=== PATIENT | female | born 1990 | race Asian ===

== ENCOUNTER 2019-07-19 06:09 | Inpatient (IN) | payer OTHER, SELFPAY ==
[2019-07-19] VITALS (49 sets, daily range): BP systolic 90–167; BP diastolic 46–93; PULSE 79–104; RESP 16; TEMP 36.4–37.6
[2019-07-19 06:56] LABS: Basophils Percent Auto 0.4 % (0.2-1.2); Eosinophils Absolute Auto 0.4 K/mm3 (0-0.3); Eosinophils Percent Auto 4.9 % (0-4.4); Hematocrit 32.4 % (37.0-47.0); Immature Granulocyte Absolute 0.13 K/mm3 (0.00-0.031); Immature Granulocyte Percent A 1.5 % (0-0.5); Immature Platelet Fraction Pct 8.9 % (0.9-11.2); Lymphocytes Percent Auto 15.5 % (18.3-44.2); Mean Corpuscular Hemoglobin 28.1 pg (26-34); Mean Corpuscular Volume 82.9 fl (80-100); Mean Platelet Volume 11.3 fl (7.4-10.4); Monocytes Absolute Auto 0.7 K/mm3 (0.1-0.6); Monocytes Percent Auto 7.7 % (2.6-8.5); Neutrophils Absolute Auto 5.9 K/mm3 (1.3-6.7); Platelet Count Result 146 k/mm3 (150-375); Red Blood Count 3.91 M/mm3 (4.2-5.4); White Blood Count 8.4 K/mm3 (4.5-10.0)
[2019-07-19] MEDS: LACTATED RINGERS 1,000 ML 125 ML IV CONT ×2 (07:09→11:39)
[2019-07-19] MEDS: AMPICILLIN 2 GM/NS 100 ML 2 GM/100 ML BAG IVPB (07:10)
--- NOTE | 2019-07-19 07:41 | PM.IMHP ---
H&P: HPI History of Present Illness Chief complaint: leaking Narrative: Khadra Saha is a 29 year old female 3 para 2001 at 34 weeks and 0 days gestation. She presented with premature rupture of membranes. She reported clear fluid from the vagina. She denies any contractions prior to admission. She is feeling contractions now. They are moderate. She denies any vaginal bleeding. She reports good movement. She denies any headache, blurry vision, epigastric pain. She denies any nausea, vomiting, fever chills or chest pain. Review of Systems Constitutional: Constitutional: Reports no additional constitutional complaints, Denies fatigue, Denies headache(s), Denies lethargy and Denies weakness Eyes: Eyes: Reports no additional eye complaints, Denies blurry vision and Denies photophobia ENT: Reports as per HPI, Denies headache(s) and Denies neck pain Cardiovascular: Cardiovascular: Denies chest pain, Denies diaphoresis, Denies leg edema, Denies palpitations and Denies dyspnea Respiratory: Respiratory: Denies hemoptysis, Denies dyspnea and Denies wheezing Gastrointestinal: Gastrointestinal: Denies abdominal pain, Denies melena, Denies bloating, Denies hematochezia, Denies nausea and Denies vomiting Genitourinary: Genitourinary: Reports no additional female genitourinary complaints Musculoskeletal: Musculoskeletal: Denies joint swelling, Denies neck pain, Denies numbness and Denies stiffness Neurologic: Denies Abnormal speech present, Denies confusion, Denies headache(s), Denies numbness and Denies weakness Psychiatric: Psychiatric: Denies anxiety, Denies confusion, Denies depression, Denies homicidal ideation and Denies suicidal ideation Endocrine: Endocrine: Denies fatigue and Denies palpitations Allergic/Immunologic: Allergic/Immunologic: Denies wheezing Meds Home Medications and Allergies Allergies Allergy/AdvReac Type Severity Reaction Status Date / Time No Known Allergies Allergy Unverified 09/07/14 23:23 Vital Signs Vital Signs - 24 hr 07/19/19 06:48 07/19/19 07:00 07/19/19 07:15 Pulse Rate 86 91 91 Blood Pressure 126/73 122/69 122/68 07/19/19 07:30 Pulse Rate 90 Blood Pressure 116/64 Exam Const: General: healthy appearing, comfortable and no acute distress; No confusion Orientation/consciousness: No confusion Eyes: Direct Ophthalmoscopy: No photophobia Resp: Auscultation: clear to auscultation bilaterally, no rales, no rhonchi and no wheezes Cardio: Rate: regular rate Heart sounds: no click, no murmurs and no rubs GI: Inspection: non-distended GI Palp: No abdominal tenderness Auscultation: normal bowel sounds Neuro: General: No confusion Speech: No Abnormal speech present Extrem: General: normal to inspection, no pedal edema and no calf tenderness H&P: Results Labs Labs: Short CBC 07/19/19 Range/Units 06:46 WBC 8.4 (4.5-10.0) K/mm3 Hgb 11.0 L (12.0-15.0) g/dL Hct 32.4 L (37.0-47.0) % Plt Count 146 L (150-375) k/mm3 Assessment and Plan Assessment and plan (1) premature rupture of membranes (PPROM) with onset of labor after 24 hours of rupture in first trimester, antepartum: Code(s): O42.111 - premature rupture of membranes, onset of labor more than 24 hours following rupture, first trimester Status: Acute Assessment and Plan: This patient is a 29-year-old multiparous female at 34 weeks gestation with premature rupture of membranes. She appears to have some symptoms of early labor. She has reassuring status. She was given a dose of Celestone. She will receive prophylactic antibiotics for GBS. She will be observed at this time for spontaneous labor. Will consider augmentation of labor later. To continue expectant management.
[2019-07-19] MEDS: BETAMETHASONE SOD PHOS/ACETATE 30 MG/5 ML VIAL 12 MG IM (07:51)
[2019-07-19 08:00] LABS: HIV 1/2 Ab P24 Ag Result Negative (Negative)
--- NOTE | 2019-07-19 08:43 | LDADM ---
This patient, Khadra Saha, was admitted to Labor/Delivery/Recovery 107 on 07/19/19 at 06:09. Plans for labor, pain management and were discussed with patient. Patient/family oriented to hospital policies and general routines including ID bracelet, bed and alarms, visiting hours, pain management, procedures, bathroom and other care routines, personal items, smoking policy, room service/diet and guest tray routines, infant security routines, and visiting hours. Patient/Family are encouraged to report perceived risks to care and to ask questions if they do not understand what they are told or what they should do. See OBIX for further documentation.
[2019-07-19 10:54] LABS: Rapid Plasma Reagin Non-Reactive (NonReactive)
[2019-07-19] MEDS: AMPICILLIN 1 GM/NS 50 ML 1 GM/50 ML BAG IVPB ×2 (11:39→15:35)
[2019-07-19] MEDS: OXYTOCIN 30 UNITS/NS 500 ML 30 UNITS/500 ML BAG IV CONT (15:35)
--- NOTE | 2019-07-19 18:35 | WPDNBDN ---
Delivery Note Data Date/Time: 07/19/19 18:35 Called to delivery for 34 week gestation with PROM mom received one dose of steroids today. Baby was crying when I got into the room. Maternal Info : 4
--- NOTE | 2019-07-19 18:49 | PM.OBPRVD ---
OB - Delivery Note Procedure Delivery date: 07/19/19 events: Labor < 37 Weeks Intrapartal events: None Induction method: none Delivery monitor: external FHT and external uterine Route of delivery: Episiotomy description: None Laceration description: Labial (1st degree left labial repaired with 4-0. Only 2 sutures needed. Pt does appear to have a previous vaginal/perineal tear that healed by secondary intention.) Delivery repair: vicryl Specimen: Yes Estimated blood loss (mL): 84 Anesthesia type: None [place] Baby Date of : 07/19/19 Time of : 17:22 Weeks of gestation at delivery: 34 gender: Male presentation: vertex position: Right Occiput Anterior Placenta delivery description: Spontaneous cord vessel description: 3 Vessels Narrative: Cord clamped at 1.5 minutes. Gasses collected and handed off to nursing staff.
[2019-07-19] MEDS: OXYTOCIN 30 UNITS/NS 500 ML 30 UNITS/500 ML BAG 125 UNITS IV CONT (19:03)
--- NOTE | 2019-07-19 21:20 | PC.NURSE ---
Patient transferred to post room #282 via ( wheelchair ). Oriented to unit, room, information board, rooming in, admission packet and security measures. Patient verbalizes understanding.
[2019-07-19] MEDS: ACETAMINOPHEN 325 MG TABLET 650 MG PO (23:57)
[2019-07-20 05:45] LABS: Hematocrit 34.4 % (37.0-47.0); Hemoglobin 11.5 g/dL (12.0-15.0)
--- NOTE | 2019-07-20 06:20 | PC.NURSE ---
Consulted with patient, mother states infant was bottle fed last feeding. Discussed the 34 week infant, with possible sleepiness and low tone for effective suck swallow. Reviewed feeding cues, frequencies, duration of feedings, feeding elimination flow sheet, and signs of adequate intake. Demonstrated stimulation techniques to wake infant for feeding. Assisted with to breast. Reviewed positioning/alignment in cross cradle, holding breast in U hold and guided asymmetrical latch on. made no effort to latch or nurse. Attempt for 5 minutes. Suggested mother supplement and initiate pumping to stimulate milk supply and offer EBM as part of supplement as available.
[2019-07-20] MEDS: ACETAMINOPHEN 325 MG TABLET 650 MG PO ×2 (07:27→21:54)
[2019-07-20] MEDS: MULTIVIT/MIN/PREN/FOL AC/IRON TABLET 1 TAB PO (07:27)
[2019-07-20] MEDS: TETANUS,DIPHTHERIA,AC PERTUSSIS ADULT (0.5 ML) BOOSTRIX IM (07:28)
--- NOTE | 2019-07-20 07:45 | P.PNOB_ITS ---
OB - PN: Subj Subjective Date/time seen: 07/20/19 07:45 Patient comments: no complaints, pain well controlled and other (Lochia similar to menses) [place] baby status: doing well OB - PN: Obj Data Labs CBC & Chem 7: 07/20/19 04:43 Labs: Laboratory Results - last 24 hr 07/19/19 07/19/19 07/19/19 06:46 06:46 06:46 Hgb Hct RPR Non-reactive HIV 1&2 Ab/P24 Ag 4thGn Negative Blood Type O Positive Antibody Screen Negative 07/20/19 04:43 Hgb 11.5 L Hct 34.4 L RPR HIV 1&2 Ab/P24 Ag 4thGn Blood Type Antibody Screen OB - PN A/P Plan day: 1 (s/p vaginal delivery, doing well) Plan: routine care Time Spent With Patient Time: Total time spent is greater than 50% in coordination of care (as documented) at patient's floor/unit and/or counseling patient: Exam Const: General: no acute distress GI: Inspection: other (Fundus firm and nontender at umbilicus) GI Palp: Yes Soft to palpation and No Tenderness to palpation present (GI) Extrem: General: no edema
[2019-07-20 07:55] VITALS: BP 109/67; PULSE 85; RESP 16; TEMP 36.4; O2SAT 98
[2019-07-20 18:45] VITALS: BP 126/55; PULSE 92; RESP 16; TEMP 36.9; O2SAT 99
[2019-07-21] MEDS: ACETAMINOPHEN 325 MG TABLET 650 MG PO ×2 (05:35→16:10)
--- NOTE | 2019-07-21 07:33 | PM.OBPNVD ---
OB - PN: Subj Subjective Date/time seen: 07/21/19 07:33 Patient comments: no complaints baby status: doing well OB - PN: Obj Data Labs CBC & Chem 7: 07/20/19 04:43 OB - PN A/P Plan day: 2 Plan: discharge home Time Spent With Patient Time: Total time spent is greater than 50% in coordination of care (as documented) at patient's floor/unit and/or counseling patient: Review of Systems Review of Systems: All systems reviewed & are unremarkable except as noted in HPI and below Exam Const: General: comfortable Resp: Effort & Inspection: normal respiratory effort Cardio: Rate: regular rate Psych: Appearance: grossly normal Affect: normal affect Attitude: cooperative Judgement: Good judgement present (Psych)
[2019-07-21] MEDS: MULTIVIT/MIN/PREN/FOL AC/IRON TABLET 1 TAB PO (07:50)
[2019-07-21 08:25] VITALS: BP 107/55; PULSE 78; RESP 18; TEMP 37; O2SAT 99
--- NOTE | 2019-07-22 08:00 | PM.OBDSVD ---
DS: Diagnosis Admitting Diagnosis Admitting Diagnosis: premature rupture of membranes, onset of labor more than 24 hours following rupture, first trimester OB - DS: Summary OB Procedures : None OB Procedures Intrapartum: Spontaneous Vag Delivery OB Procedures: : None Peripartum Data Infant Delivery Method: Natural Vaginal Laceration description: Labial complications: none Time Spent with Patient Time attestation: Total time spent providing and/or coordinating discharge services: DS: Data Data Completed and Pending Pending studies at discharge: Pending at discharge 07/19/19 18:30 Surgical [PTH] Routine Discharge Plan Discharge Attending physician on discharge: Laila Pulido Discharging Clinician: Tarah Bray Patient Disposition: Home, Self-Care Activity: pelvic rest Diet: regular Discharge Instructions: Education: Mom and Baby Guide Given to: Mother Follow-Up: Call your delivering provider's office for an appointment to be seen in: 4 Weeks Mom and baby should come to the [facility] for the follow-up appointment. Appointment Date/Time: see 's discharge packet. BREAST CARE: 1. Wear a snug supportive bra. 2. For engorgement discomfort: Breast Feeding: A. Apply warm moist washcloths B. Express milk as needed to relieve engorgement C. Wear loose clothing Bottle Feeding: A. May apply ice packs 3. For sore nipples: A. Identify correct latch-on B. Apply warm moist washcloths before and after nursing C. Air dry nipples after nursing D. May apply Lansinoh cream to nipples EPISIOTOMY/PERINEAL CARE: 1. Until bleeding stops, use your sugar bottle after urinating 2. Change your pad frequently throughout the day 3. You may take sitz baths several times a day (fill your bathtub with warm water and soak for 20 minutes.) Do NOT bathe in the water 4. No tub baths until seen by your physician - You may shower ACTIVITY: 1. Rest as much as possible. 2. Do not exercise or lift anything heavier than your baby (such as laundry or other children.) 3. Avoid stairs or driving as much as possible. 4. Do not put anything into the vagina. No douching, tampons, or sexual activity until seen by physician. NOTIFY PHYSICIAN IF YOU HAVE ANY QUESTIONS OR IF ANY OF THE FOLLOWING SYMPTOMS OCCUR: 1. If your episiotomy becomes red, swollen, or more painful than what you have experienced in the hospital. 2. If your vaginal bleeding becomes foul smelling. 3. If your vaginal bleeding becomes more heavy than a period or if your bleeding changes from pink to bright red. However, you may pass an occasional walnut-sized clot once or twice for the first week . 4. If you experience a sharp, shooting pain in you calves. 5. If you discover a hard, reddened area on your breast or if you experience flu-like symptoms. DIET: 1. Eat regular, well-balanced meals. 2. Drink plenty of fluids daily. If , drink to thirst. Stand Alone Forms: General Discharge Information Follow-up/Referrals: Laila Pulido MD [Physician] - 4 Weeks Date of admission: 07/19/19 06:09 Primary Care Provider: PHYSICIAN,CLERICAL OFFICE WORKER Admitting Provider: Laila Pulido Discharge Date/Time: 07/21/19 16:15 Attending physician on admission: Laila Pulido
== END 2019-07-21 16:15 | disposition home or self-care (01) | DRG 807 ==
LOC: ANHLDR 07-20 09:19 → ANHOB2 07-20 09:19 → ANHOBPP 07-20 09:19
PROVIDERS: Advanced Practice Midwife; Admitting Provider Obstetrics & Gynecology; Visit Provider Obstetrics & Gynecology
DX: O42.913 Preterm premature rupture of membranes, unspecified as to length of time between rupture and onset of labor, third trimester (principal); Z37.0 Single live birth; O70.0 First degree perineal laceration during delivery; O76 Abnormality in fetal heart rate and rhythm complicating labor and delivery; Z3A.34 34 weeks gestation of pregnancy
CPT/HCPCS: 36415; 84112; 85014; 85018; 85025; 85055; 86592; 86703; 86850; 86900; 86901; 88307; 90715; A9270; G0432; J0290; J0702; J2590; J3010; J7120

== ENCOUNTER 2021-12-01 19:00 | Emergency (ER) | payer OTHER, BC, SELFPAY ==
--- NOTE | 2021-12-01 19:01 | ED.EXTPRO ---
HPI - Extremity Problem General Chief complaint: Ear Stated complaint: Dizziness,Rt Arm Numbness Time Seen by Provider: 12/01/21 19:01 Source: patient Mode of arrival: ambulatory Limitations: no limitations History of Present Illness HPI Narrative: Ms. Saha is a 31-year-old female patient presenting to the clinic today with complaints of dizziness since and right arm numbness x2 months. She reports her dizziness seems to be worse when she is at work. She states when she is dizzy she feels as though she is spinning. 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 She denies being overheated or standing for long periods of time at work. She denies any nausea or vomiting. Reports she has right arm numbness/heaviness that starts at the top of her shoulder and radiates down her arm. She reports this is more so at nighttime. She denies any pain or numbness in her arm currently. Related Data Allergies Allergy/AdvReac Type Severity Reaction Status Date / Time No Known Allergies Allergy Verified 12/01/21 19:34 Review of Systems Review of Systems: Pertinent positives per HPI. Patient denies any fever, chills, rash, headache, visual changes, dizziness, cough, runny nose, sore throat, shortness of breath, chest pain, palpitations, nausea, vomiting, diarrhea, constipation, abdominal pain, or any urinary issues. PMFSH Social History Social History Smoking status: Never smoker Second hand tobacco smoke exposure: Yes Substance use: never Gender identity (if verbalized by the patient): Female Spiritual care concerns: No Comments At the time of my signature, I reviewed and agree with the nursing past medical, surgical, social, and family history. There is no relevant family history pertinent to the patient complaint. Exam Narrative: General: Well-developed, well nourished, in no apparent distress Head: Normocephalic, atraumatic Eyes: Pupils equally round and reactive to light bilaterally, EOM intact, sclera and conjunctive clear, no discharge, lids normal, no nystagmus Ears: TMs intact and clear, left ear canal clear, right ear canal cerumen impaction, irrigation performed in the clinic, no drainage, grossly hearing normal. Nose: Nares patent, no discharge, no inflammation, no sinus tenderness. Mouth: Oropharynx without lesions or masses, good dentition, MMM. Tongue midline, even rise and fall of uvula Neck: Supple, trachea midline, no enlargement of anterior or posterior cervical nodes, no thyroid masses or goiter palpable. Cardio: Regular rate and rhythm, s1 and s2 normal, no murmur appreciated. Resp: Clear to auscultation bilaterally anteriorly and posteriorly, no rhonchi, rales, wheezing or rubs Musculoskeletal: No deformity, non-tender to palpation, grossly normal range of motion, muscle strength strong and equal, peripheral pulse strong, no edema, no cyanosis, normal gait and station Neuro: Alert and oriented x4 with normal speech, no focal deficits, cranial nerves I through XII intact, muscle strength 5 out of 5, sensation intact bilaterally, negative Romberg test Musculoskeletal: No deformity, non-tender to palpation, grossly normal range of motion, bilateral muscle strength strong and equal, bilateral strong hand grasp and equal, negative Tinel's, peripheral pulse strong, no edema, no cyanosis, normal gait and station Course Course Emergency Course: Portions of this record may have been created with voice recognition software. Level of Care: Express Care Visit Vital Signs Vital signs: Vital signs reviewed MDM - Extremity (Nontraumatic) MDM Narrative Medical decision making narrative: At the time of visit patient is resting comfortably on the exam table. Patient has right sided cerumen impaction. Ear irrigation performed and was successful. I feel that she is having some nerve inflammation/pinched nurse to the neck when she
[2021-12-01 19:09] VITALS: BP 117/68; PULSE 77; RESP 18; TEMP 36.4; O2SAT 100
== END 2021-12-01 19:42 | disposition home or self-care (01) ==
PROVIDERS: Emergency Provider Nurse Practitioner Family
DX: H61.21 Impacted cerumen, right ear (principal); R20.2 Paresthesia of skin; R42 Dizziness and giddiness
CPT/HCPCS: 69209; 99213; G0463

== ENCOUNTER → 2022-07-10 08:26 | Outpatient (CLI) | payer OTHER, BC, SELFPAY ==
--- NOTE | ~2022-07-10 | XR_ITS ---
Right Shoulder Technique: AP and axillary views were obtained. Clinical History: Pain Findings: No fracture or dislocation is seen. Osseous alignment is anatomic. The glenohumeral and acr omioclavicular joint spaces are preserved. Soft tissues are unremarkable. Impression: Unremarkable right shoulder radiographs. Reviewed, dictated and finalized at [facility]. Impression: Unremarkable right shoulder radiographs.
--- NOTE | ~2022-07-10 | XR_ITS ---
Cervical Spine: AP, lateral, open-mouth views Clinical History: Pain Findings: There is straightening/minimal reversal of the normal cervical lordosis. The vertebral bod ies and posterior elements appear intact. The intervertebral disc spaces are well maintained. Pre-ve rtebral soft tissues are unremarkable. Impression: Straightening/minimal reversal normal cervical lordosis, otherwise unremarkable exam. Reviewed, dictated and finalized at location . Impression: Straightening/minimal reversal normal cervical lordosis, otherwise unremarkable exam.
== END ==
PROVIDERS: PCP Family Medicine; Visit Provider Family Medicine
DX: M25.511 Pain in right shoulder (principal); M54.2 Cervicalgia
CPT/HCPCS: 72050; 73030

== ENCOUNTER 2022-07-22 09:47 | Emergency (ER) | payer OTHER, BC, SELFPAY ==
[2022-07-22 09:56] VITALS: BP 110/65; PULSE 68; RESP 18; TEMP 36.6; O2SAT 100
--- NOTE | 2022-07-22 10:07 | ED.EPISTAXIS ---
HPI - Epistaxis General Chief complaint: Epistaxis Stated complaint: nose bleed Time Seen by Provider: 07/22/22 10:07 Source: patient Mode of arrival: ambulatory Limitations: no limitations History of Present Illness HPI Narrative: 32-year-old female presents with complaint of nosebleeds every morning for the past 8-10 days. Patient reports that she had allergy symptoms and took Claritin for approximately 3 weeks. Has been off of Claritin for about 2 weeks and then nosebleed started. 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 Reports that nose bleeds last approximately 5 minutes. States it it is a slow trickle. Sometimes she wakes up with a nose bleed another time she wakes up congested blows her nose and that her nose starts bleeding. She denies pain. She had a nosebleed this morning that lasted 2 minutes . She is here today with her . She currently does not have a nose bleed. All systems reviewed and negative except as noted above. Related Data Home Medications Medication Instructions Recorded Confirmed tizanidine 2 mg tablet 2 mg PO PRN PRN cervicalgia 07/22/22 07/22/22 Allergies Allergy/AdvReac Type Severity Reaction Status Date / Time No Known Allergies Allergy Verified 07/22/22 09:55 Review of Systems Review of Systems: CONSTITUTIONAL: Denies fever, chills, or sweats. EYES: Denies visual changes, redness, or discharge. ENT: Denies rhinorrhea, congestion, sore throat, or otalgia. Reports nosebleed usually to left nare. CARDIOVASCULAR: Denies chest pain, palpitations, or edema. RESPIRATORY: Denies cough or dyspnea. GASTROINTESTINAL: Denies abdominal pain, nausea, vomiting, or diarrhea. GENITOURINARY: Denies dysuria or hematuria. SKIN: Denies rash or itching. MUSCULOSKELETAL: Denies back pain, joint pain, or myalgia. NEUROLOGIC: Denies headache, numbness, or weakness. PSYCHIATRIC: Denies anxiety or depression. All other systems reviewed are negative, except as documented in HPI. [facility] Social History Social History Smoking status: Never smoker Second hand tobacco smoke exposure: Yes Substance use: never Gender identity (if verbalized by the patient): Female Spiritual care concerns: No Comments At time of signature, agree with nursing past medical, surgical, social and family history. There is no relevant family history pertinent to the presenting complaint. Exam Narrative: GENERAL: This is a well-nourished, well-developed patient, in no apparent distress. HEAD: normocephalic, atraumatic. EYES: PERRL. Sclera clear/white. Vision is grossly intact. EARS: External ears normal, auditory canals clear and without drainage, TMs normal without perforation. Hearing grossly intact. NOSE: External nose normal with no obvious nasal discharge, nares without redness, no rhinorrhea. Dried blood to left nare. No active bleeding. THROAT: Mucous membranes moist, posterior pharynx clear. NECK: Neck supple, non-tender without lymphadenopathy, masses or thyromegaly. CARDIOVASCULAR: Regular rate and rhythm without murmurs, gallops, or rubs. RESPIRATORY: Clear to auscultation. Breath sounds equal bilaterally. No wheezes, rales, or rhonchi. SKIN: warm, Dry, intact with no suspicious lesions or rash, good texture and turgor. NEURO: awake, alert, and oriented to person, place and time. There were no obvious focal neurologic abnormalities. EXTREMITIES: No joint tenderness, effusion, or edema noted. Course Course Level of Care: Express Care Visit Vital Signs Vital signs: Vital Signs Temperature 36.6 C 07/22/22 09:56 Pulse Rate 68 07/22/22 09:56 Respiratory Rate 18 07/22/22 09:56 Blood Pressure 110/65 07/22/22 09:56 Pulse Oximetry 100 07/22/22 09:56 Oxygen Delivery Room Air 07/22/22 09:56 Temperature 36.6 C 07/22/22 09:56 Pulse Rate 68 07/22/22 09
== END 2022-07-22 10:19 | disposition home or self-care (01) ==
PROVIDERS: Emergency Provider Nurse Practitioner Family; PCP Family Medicine
DX: R04.0 Epistaxis (principal)
CPT/HCPCS: 99213; G0463

== ENCOUNTER 2023-12-29 12:46 | Emergency (ER) | payer OTHER, SELFPAY ==
[2023-12-29 13:12] VITALS: BP 122/59; PULSE 93; RESP 16; TEMP 36.6; O2SAT 100
[2023-12-29 13:47] LABS: EDCOVIDSCREEN Positive (Negative)
--- NOTE | 2023-12-29 13:54 | ED.URI ---
HPI - URI/Sore Throat General Chief Complaint: Upper Respiratory Infection Stated Complaint: Cough / runny nose Time Seen by Provider: 12/29/23 13:18 Source: patient, RN notes reviewed and old records reviewed Mode of arrival: ambulatory Limitations: no limitations History of Present Illness HPI Narrative: 33-year-old female to Express Care with complaint of nonproductive cough and runny nose for 2 days. Patient reports that she took a positive COVID test yesterday While at work. however, patient requesting COVID test here. States she means it medically documented for work. Patient is sitting comfortably in exam room in no acute distress. Patient able to tolerate fluids by mouth. Respirations even and nonlabored. Related Data Home Medications Medication Instructions Recorded Confirmed No Home Medications 12/29/23 12/29/23 Allergies Allergy/AdvReac Type Severity Reaction Status Date / Time Penicillins Allergy Rash Verified 12/29/23 13:27 Review of Systems Review of Systems: All systems reviewed & are unremarkable except as noted in HPI and below Constitutional: Constitutional: Reports no additional constitutional complaints Eyes: Eyes: Reports no additional eye complaints ENT: Reports as per HPI and Reports nasal discharge Cardiovascular: Cardiovascular: Reports no additional cardiovascular complaints, Denies chest pain and Denies dyspnea Respiratory: Respiratory: Reports no additional respiratory complaints, Reports cough and Denies dyspnea Musculoskeletal: Musculoskeletal: Reports no additional musculoskeletal complaints Neurologic: Reports system reviewed and no additional complaints, except as documented Psychiatric: Psychiatric: Reports no additional psychiatric complaints PMFSH Social History Social History Smoking status: Never smoker Second hand tobacco smoke exposure: Yes Substance use: never Gender identity (if verbalized by the patient): Female Spiritual care concerns: No Comments At the time of my signature, I reviewed and agree with the nursing past medical, surgical, social, and family history. There is no relevant family history pertinent to the patient complaint. Exam Const: General: cooperative, healthy appearing, comfortable, no acute distress, alert and well nourished Nutritional Appearance: well nourished Orientation/consciousness: patient oriented x3 Limitations: no limitations HENMT: Head: normal to inspection Ears: external ears normal Face/Nose/Sinus: Normal external nose present, Normal nares present, normal facial exam, No erythema and No edema Face and sinus: normal facial exam, no erythema and no edema Mouth: Yes Normal oral and palatal mucosa present Eyes: General: appearance normal, both eyes and all related structures Neck: Neck: normal visual inspection, full ROM and no meningeal signs Lymphatic: no lymphadenopathy noted and no lymphedema noted Chest: Chest palpation & inspection: normal inspection of the chest Resp: Effort & Inspection: normal respiratory effort and able to speak in complete sentences Auscultation: clear to auscultation bilaterally Cardio: Jugular venous distension: no JVD Rate: regular rate Rhythm: regular rhythm Back/Spine/Pelvis: Cervical Spine: cervical ROM normal Skin: General skin exam: normal color, no rashes or lesions noted and turgor normal Neuro: General: patient oriented x3, gait normal, moves all extremities and no meningeal signs Speech: normal speech Gait exam (Neuro): Normal gait present Extrem: General: normal to inspection, full ROM and capillary refill normal Psych: Appearance: grossly normal and well kempt Course Course Emergency Course: Some parts of this dictation were generated by voice recognition software and may contain typographical and/or grammatical inaccuracies. Level of Care: Express Care Visit Vital Signs Vital signs: Vi
== END 2023-12-29 13:58 | disposition home or self-care (01) ==
PROVIDERS: Emergency Provider Nurse Practitioner Family; PCP Family Medicine
DX: U07.1 COVID-19 (principal)
CPT/HCPCS: 87426; 99212; G0463

== ENCOUNTER 2024-04-15 08:32 | Emergency (ER) | payer OTHER, SELFPAY ==
--- NOTE | 2024-04-15 08:35 | ED_ITS ---
HPI - URI/Sore Throat General Chief Complaint: Upper Respiratory Infection Stated Complaint: cough / headache Time Seen by Provider: 04/15/24 08:33 Source: patient Mode of arrival: ambulatory Limitations: no limitations History of Present Illness HPI Narrative: Patient is a 34-year-old female who presents with cough, headache and fatigue for 1 week. Patient states her whole family has had the flu. Also reports fever of 100.5 last night. Denies any nausea, vomiting, diarrhea cause sore throat. Has been taking cough medicine and Tylenol. Related Data Allergies Allergy/AdvReac Type Severity Reaction Status Date / Time Penicillins Allergy Rash Verified 04/15/24 08:42 Review of Systems Review of Systems: All systems reviewed & are unremarkable except as noted in HPI and below Constitutional: Constitutional: Denies body ache(s), Denies chills, Reports fatigue, Reports fever(s), Reports headache(s), Denies malaise and Denies weakness Eyes: Eyes: Denies blurry vision, Denies itchy eyes and Denies loss of vision ENT: Denies otalgia, Reports headache(s), Denies nasal congestion, Denies sinus pain and Denies sore throat Cardiovascular: Cardiovascular: Denies chest pain, Denies irregular heart rhythm and Denies dyspnea Respiratory: Respiratory: Reports cough and Denies dyspnea Gastrointestinal: Gastrointestinal: Denies abdominal pain, Denies diarrhea, Denies nausea and Denies vomiting Musculoskeletal: Musculoskeletal: Denies back pain, Denies myalgias and Denies arthralgias Integumentary/Breasts: Skin/Breast: Denies pruritus and Denies rash Neurologic: Reports headache(s), Denies loss of vision and Denies weakness Psychiatric: Psychiatric: Reports no additional psychiatric complaints Endocrine: Endocrine: Denies fatigue Allergic/Immunologic: Allergic/Immunologic: Denies itchy eyes PMFSH Social History Social History Smoking status: Never smoker Second hand tobacco smoke exposure: Yes Substance use: never Gender identity (if verbalized by the patient): Female Spiritual care concerns: No Comments At time of signature, agree with nursing past medical, surgical, social and family history. There is no relevant family history pertinent to the presenting complaint. Exam Const: General: cooperative, healthy appearing, comfortable, no acute distress and well nourished Nutritional Appearance: well nourished Orientation/consciousness: patient oriented x3 Limitations: no limitations HENMT: Head: normal to inspection, normocephalic and atraumatic Ears: hearing grossly normal bilaterally, external ears normal, TM's normal bilaterally, no periauricular adenopathy and Abnormal EAC present excessive cerumen on the right Face/Nose/Sinus: Normal external nose present, Abnormal mucous membranes and turbinates present erythematous bilateral and diffuse, normal facial exam, sinuses nontender and face symmetric Face and sinus: normal facial exam, sinuses nontender and face symmetric Mouth: Yes Normal oral and palatal mucosa present, Yes lip normal, Yes tongue normal, Yes Normal salivary glands and ducts present, Yes oropharynx normal and Yes moist mucous membranes Teeth and gingiva: dentition normal Throat: posterior oropharynx normal, tonsils normal and uvula midline Eyes: General: appearance normal, both eyes and all related structures Alignment and Position: alignment normal and position normal Periorbital: periorbital findings normal Eyelids: eyelids normal Pupils: Equal, round and reactive pupils present Neck: Neck: normal visual inspection, full ROM, no lymphadenopathy and supple Chest: Chest palpation & inspection: normal inspection of the chest and normal palpation of entire chest wall Resp: Effort & Inspection: normal respiratory effort and able to speak in complete sentences Auscultation: no crackles, no rales, rhonchi upper bilaterally (clears with cough) and no wheezes Cardio: Rate: tachycardic Rhythm: regular rhythm Heart sounds: S1 normal heart sound present and S2 normal heart sound present GI: Inspection: normal to inspection Skin: General skin exam: normal color and no rashes or lesions noted Neuro: General: patient oriented x3 and moves all extremities Cranial nerves: Yes Equal, round and reactive pupils present Speech: normal speech Gait exam (Neuro): Normal gait present Extrem: General: normal to inspection, full ROM and no edema Psych: Appearance: grossly normal and well kempt Mental Status: mental status grossly normal Speech and movement: Normal speech and movement present Affect: normal affect Attitude: cooperative Thought process: Normal thought process present Course Course Emergency Course: Discharge instructions reviewed with patient, as well as provided in writing per nursing staff. The instructions also include specific and strict return/GO TO THE ER as well as f/u information. All questions have been answered, and the patient deny any further questions with discharge and discharge plan. Portions of this record may have been created with voice recognition software Level of Care: Express Care Visit Vital Signs Vital signs: Vital Signs Temperature 36.6 C 04/15/24 08:41 Pulse Rate 107 H 04/15/24 08:41 Respiratory Rate 18 04/15/24 08:41 Blood Pressure 118/87 04/15/24 08:41 Pulse Oximetry 100 04/15/24 08:41 Oxygen Delivery Room Air 04/15/24 08:41 Temperature 36.6 C 04/15/24 08:41 Pulse Rate 107 H 04/15/24 08:41 Respiratory Rate 18 04/15/24 08:41 Blood Pressure 118/87 04/15/24 08:41 Pulse Oximetry 100 04/15/24 08:41 Oxygen Delivery Room Air 04/15/24 08:41 Reviewed MDM - URI/Sore Throat MDM Narrative Medical decision making narrative: Pt well hydrated appearing, in no respiratory distress, hemodynamically stable. Recommend supportive care. The patient is stable at time of discharge the clinical impression was discussed and the patient was given the opportunity to ask questions, which were addressed as completely as possible given the information available at present. Anticipatory guidance and return to care precautions were discussed and the importance of primary care follow-up was stressed and encouraged. The patient voiced understanding of the plan, indications to return, and the need for follow-up. Differential diagnosis considered: Jackson virus, strep pharyngitis, allergic rhinitis, upper respiratory tract infection, sinusitis, rhinosinusitis, nasopharyngitis. viral pharyngitis, otitis media, otitis externa, otitis effusion, foreign body, cerumen impaction, viral syndrome, and influenza.? Exam findings show no acute concerns or changes; patient is non-toxic appearing and is in no distress.? Patient is appropriate for outpatient treatment and follow- up.? Medical Records Attestation: I reviewed the patient's medical records. Lab Data Attestation: I reviewed the patient's lab results. Labs: Lab Results 04/15/24 04/15/24 Range/Units 09:09 09:10 POC Influenza A Ag Negative (Negative) POC Influenza B Ag Negative (Negative) POC SARS CoV-2 Ag Negative (Negative) Discharge Plan Discharge Clinical Impression: Viral infection Patient Disposition: Home, Self-Care Condition: Stable Instructions: Viral Syndrome (ED) Additional Instructions: Your flu and COVID were both negative Your symptoms are due to a viral illness, which is not treated with antibiotics. Viral symptoms can be present for up to a few weeks. -For fever/pain, you may take: Tylenol 650-1000mg by mouth every 4-6 hours. Do not exceed 4000mg in 24 hours. Advil (Ibuprofen) 600 mg by mouth every 6 hours. Do not exceed 2400mg in 24 hours. 8 AM: Tylenol 11 AM: Ibuprofen 2 PM: Tylenol 5 PM: Ibuprofen 8 PM: Tylenol 11 PM: Ibuprofen 2 AM: Tylenol 5 AM: Ibuprofen -Antihistamine medication such as Benadryl/Zyrtec at night and Claritin/Carlene during the day can help improve symptoms. -Use Flonase twice a day for 5 days then daily to help reduce the inflammation and dry up your sinuses. -You can also use Sudafed behind the pharmacy counter(12 or 24 hour). Be sure to drink plenty of water with these medications at least 8 ounces with every dose and it is important to drink 8 to 10 glasses of water per day. Water is a natural decongestant -Eat and drink things that are easy to swallow, like tea or soup, or popsicles. -Oral rinses such as: Salt water gargles and/or may use topical anesthetic (eg. Chloraseptic spray) or lozenges to relieve dryness or throat pain). -Frequent hand washing or hand contact center associate is one of the best ways to prevent spread of infection. -Using a vaporizer or humidifier at night will also help thin secretions and help with coughing up phlegm. -Follow up with primary care provider in 3-5 days if condition is not improving - For new or worsening symptoms go directly to the nearest ER Patient Language: Wolof Prescriptions: New benzonatate 100 mg capsule 100 mg PO BID PRN (Reason: cough) Qty: 14 0RF Follow-up/Referrals: J Carlos,MD Cheng [Primary Care Provider] - 3 Days Stand Alone Forms: Work/School Release IP Time of Disposition: 09:02
--- OUTSIDE RECORDS SUMMARY | 2024-04-15 08:37 | XMS_ITS | Data Portability ---
Author Organization [place] [facility], Main Office Address [address] [place] [address] Care Team Providers Care Fixed Income Director Name Role Phone WHITMAN, CHENG Primary Care Provider Assessment Encounter Date Assessment Date Assessment LastModified by Organization Details LastModified Time 11/13/2022 11/13/2022 32 yo F with - TOOTHACHE, Rt upper molar - HLD, new - CHRONIC NECK PAIN - RT SHOULDER PAIN, chronic - PARESTHESIA OF UEs Annual labs: 08/07/22. X-ray C-spine & Rt shoulder: 07/10/22. D/w pt and her in detail about her findings, recent labs & imagines and further plan of care. Staff to get result. Will call pt with it. Pt declined for statin at this time. Meds as directed. Diet and exercise explained in detail. Advised to avoid any strenuous activities/lif ting-pushing until cleared. Educated pt about alarming symptoms to monitor at home and call us back or get checked in ED. HM: WWE - 08/28/22, normal. Cont f/u with OUTSOLE COMPRESSOR as per schedule. Flu, Tdap, Gardasil - At pharmacy/HD. F/u in 3 months. Lipids in 03/01. Annual labs in 08/31. [email or web address] Not available 11/13/2022 09:48:43 02/12/2023 02/12/2023 32 yo F with - HLD, new - CHRONIC NECK PAIN, improved - RT SHOULDER PAIN, chronic, improved - PARESTHESIA OF UEs, resolved Annual labs: 08/07/22. X-ray C-spine & Rt shoulder: 07/10/22. D/w pt and her in detail about her findings, recent labs & imagines and further plan of care. Pt declined for statin at this time. Meds as directed. Diet and exercise explained in detail. Advised to avoid any strenuous activities/lif ting-pushing until cleared. Educated pt about alarming symptoms to monitor at home and call us back or get checked in ED. HM: WWE - 08/28/22, normal. Cont f/u with OUTSOLE COMPRESSOR as per schedule. Flu - Pt declined. Tdap, Gardasil - At pharmacy/HD. F/u in 1-2 months. Lipids in 03/01. Annual labs in 08/31. Not available 02/12/2023 09:52:08 04/15/2023 04/15/2023 33 yo F with - HLD (diet controlled), improved - CHRONIC NECK PAIN, improved - RT SHOULDER PAIN, resolved - PARESTHESIA OF UEs, resolved Annual labs: 08/07/22. X-ray C-spine & Rt shoulder: 07/10/22. D/w pt and her in detail about her findings, recent labs & imagines and further plan of care. Meds as directed. Diet and exercise explained in detail. Advised to avoid any strenuous activities/lif ting-pushing until cleared. Educated pt about alarming symptoms to monitor at home and call us back or get checked in ED. HM: WWE - 08/28/22, normal. Cont f/u with OUTSOLE COMPRESSOR as per schedule. Flu - Pt declined. Tdap, Gardasil - At pharmacy/HD. F/u in 4 months. Annual labs in 08/31. [email or web address] Not available 04/15/2023 10:08:37 Plan of Treatment Reminders Order Date Submit Date Provider Last Modified By Organization Details Last Modified Time Details Appointments None recorded. Lab lipid panel, serum [email or web address] [facility] (Lab), [address] [place], [address], 4 16:51:15 lipid panel, serum [email or web address] [facility] (Lab), [address] [place], [address], 4 09:17:04 Referral None recorded. Procedures None recorded. Surgeries None recorded. Imaging None recorded. Medication Orders penicillin V potassium 500 mg tablet [address] [id number], [address] [place], [place], [id number], 10:01:48 meclizine 25 mg tablet [address] [id number], [address] [place], [place], [id number], 10:01:45 Patient TargetsNo targets recorded. Patient Instructions Encounter Date Encounter Id Patient Instructions Last Modified By Organization Details Last Modified Time 11/13/2022 [id number] high cholesterol : care instructions [email or web address] Not available 11/13/2022 09:39:06 02/12/2023 [id number] high cholesterol : care instructions Not available 02/12/2023 09:47:25 04/15/2023 [id number] high cholesterol : care instructions [email or web address] Not available 04/15/2023 10:06:08 Reason for Referral None Reported. Results Created Date Observation Date Name Description Value Unit Range Abnormal Flag Note LastModifiedBy Organization Detail LastModifiedTime 04/08/19 24 04/08/2023 LIPID PANEL cholesterol 186 mg/dL 140-19 9 NIH DANY NSUS RECOM MENDA TION FOR RICHARD STERO L: ADULT CHILD LOW RISK: <200 <170 BORDE RLINE : <200- 239 ----- HIGH RISK: >240 >[address] [facility] (Lab) [address] [place], [address], 04/08/2023 16:31:30 04/08/19 24 04/08/2023 LIPID PANEL triglyceride s 113 mg/dL 0-150 NIH DANY NSUS REPOR T RECOM MENDA TION FOR TRIGL YCERI YAZMIN: ADULT CHILD LOW RISK: <150 ----- BODER LINE: 150-1 99 ----- HIGH RISK: >200 ----- Not Available [facility] (Lab) [address] [place], [address], 04/08/2023 16:31:30 04/08/19 24 04/08/2023 LIPID PANEL HDL cholesterol 55 mg/dL 40- Not Available [facility] (Lab) [address] [place], [address], 04/08/2023 16:31:30 04/08/19 24 04/08/2023 LIPID PANEL LDL cholesterol, calculated 108 mg/dL 0-130 NIH DANY NSUS REPOR T RECOM MENDA TIONS FOR LDL: ADULT CHILD LOW RISK <130 <110 (OPTI MAL LDL) <100 ----- NAHIDDE RLINE : 130-1 59 ----- HIGH RISK: >160 >130 A TRIGL YCERI DE RESUL T >400 INVAL IDATE S THE CALCU LATIO N FOR LDL FRACT IONAT ION - THE LDL RESUL T WILL NOT BE REPOR DANICA. Not Available [facility] (Lab) [address] [place], [address], 04/08/2023 16:31:30 Result Notes None recorded. Problems Name Problem SNOMED Code Status Onset Date Resolution Date Notes Provider Name and Address Organization Details Recorded Time Pain of right shoulder joint 7128516377699 9100 Active 2022 Cheng Whitman MD [address] [facility], [address], [address], [employer] 3 10:08:26 Chronic neck pain 9709924474947 Active 2022 Cheng Whitman MD [address] [facility], [address] [address], [place], [address], [employer] 3 10:08:32 Paresthesia of upper limb 18006452 Active 2022 Cheng Whitman MD [address] [facility], [address] [address], [place], [address], [employer] 3 10:40:41 Impacted cerumen in right ear 8736200743065 103 Active 2022 Cheng Whitman MD [address], [place], [address], [employer] 3 10:09:32 Hyperlipide maksim 30854386 Active 2022 Cheng Whitman MD [address] [facility], [address], [place], [address], [employer] 3 12:01:50 Toothache 62667604 Active 2022 Cheng Whitman MD [address], [place], [address], [employer] 3 09:40:03 Vertigo 066226043 Active 2022 Cheng Whitman MD [address] [facility], [address], [place], [address], [employer] 09:46:43 Problem Notes None recorded. Procedures Surgical History Date Name Laterality Status Provider Name and Address Organization Details Recorded Time 08/29/19 23 Date of Last Pap Smear completed Shabana Burnham RN [facility] 04/15/2023 10:01:30 08/22/19 23 Ear Irrigation completed Cheng Whitman MD [address], [address] [place] [address], [place], [address], [employer] [facility] 08/21/2022 11:59:49 03/10/19 14 appendectomy completed Bell Harrison RN [facility] 07/02/2022 09:59:13 Imaging Results None recorded. Procedure Notes None recorded. Medical Equipment None Reported. Allergies Allergen ID Allergen Name Allergen Category Reaction Reaction Severity Criticality Documentation Date Start Date Code Code System Note Provider Name and Address Organization Details Recorded Time 66822 Product containin g penicilli n and antibioti c (product) medicatio n rash Not available Not available 04/15/2023 32830 05 SNOMED Shabana Burnham RN [facility], [facility] 4 09:55:13 Medications Name Sig Start Date Stop Date Status Note LastModified by Organization Details LastModified Time tizanidine 2 mg tablet Take 1 tablet every 12 hours by oral route as needed for 30 days. 08/28 completed Not Available Not Available Not Available clindamycin HCl 300 mg capsule TAKE 1 CAPSULE BY MOUTH EVERY 6 HOURS UNTIL ALL TAKEN 04/15 completed Not Available Not Available Not Available prednisone 20 mg tablet TAKE 2 TABLETS BY MOUTH DAILY FOR 5 DAYS 07/02 completed Not Available Not Available Not Available penicillin V potassium 500 mg tablet TAKE 1 TABLET BY MOUTH EVERY 8 HOURS FOR 7 DAYS DIRECTED 04/15 completed Not Available Not Available Not Available meclizine 25 mg tablet TAKE 1 TABLET BY MOUTH EVERY 8 HOURS FOR 5 DAYS NEEDED 04/15 completed Not Available Not Available Not Available diclofenac sodium 75 mg tablet,dirk yed release Take 1 tablet every 12 hours by oral route as needed for 30 days. 04/15 completed Not Available Not Available Not Available Saline Nasal 0.65 % spray aerosol USE 1 SPRAY IN EACH NOSTRIL FOUR TIMES DAILY 08/28 completed Not Available Not Available Not Available Vitals Date Recorded Body height Body mass index (BMI) Body weight Body temperature Heart rate Respiratory rate Oxygen saturation Oxygen saturation in Arterial blood by Pulse oximetry Systolic blood pressure Diastolic blood pressure Provider Name and Address Organization Details Last Updated DateTime 3 149.86 cm 24.8 kg/m2 00009.7 8 g 97.1 [degF] 76 /min 16 /min 98 % 98 % 100 mm[Hg] 60 mm[Hg] Gus Sanchez [facility] [employer] [facility] 3 09:33:40 Date Recorded Body height Body mass index (BMI) Body weight Body temperature Heart rate Respiratory rate Oxygen saturation Oxygen saturation in Arterial blood by Pulse oximetry Systolic blood pressure Diastolic blood pressure Provider Name and Address Organization Details Last Updated DateTime 3 149.86 cm 25.4 kg/m2 99270.6 4 g 98.1 [degF] 68 /min 16 /min 98 % 98 % 102 mm[Hg] 58 mm[Hg] Gus [facility] [employer] [facility] 3 09:40:47 Date Recorded Body height Body mass index (BMI) Body weight Body temperature Heart rate Oxygen saturation Oxygen saturation in Arterial blood by Pulse oximetry Pain severity - 0-10 verbal numeric rating [Score] - Reported Systolic blood pressure Diastolic blood pressure Provider Name and Address Organization Details Last Updated DateTime 149.86 cm 25.4 kg/m2 94855.2 g 96.3 [degF] 73 /min 98 % 98 % 0 120 mm[Hg] 80 mm[Hg] Shabana Burnham RN [facility] 09:57:31 Date Recorded Respiratory rate Provider Name a nd Address Organization Details Last Updated DateTime 04/15/2023 20 /min Madeline Torres [address] [facility], [address], [address], [employer] [facility] 04/15/2023 10:02:35 Social History Question Answer Notes LastModified by Organization Details LastModified Time Tobacco Smoking Status Never Smoker Blel Harrison RN [facility], [place] [employer] [facility] 07/02/2022 09:57:17 Do You Have An Advance Directive? No [email or web address] Information not available 07/02/2022 What Is Your Level Of Alcohol Consumption? None Information not available 07/02/2022 Is Blood Transfusion Acceptable In An Emergency? Yes Information not available 08/28/2022 What Is Your Level Of Caffeine Consumption? None [email or web address] Information not available 07/02/2022 What Is Your Code Status? Full Code Information not available 08/28/2022 In The 14 Days Before Symptom Onset, Have You Had Close Contact With A Laboratory-confi rmed COVID-19 While That Case Was Ill? No [email or web address] Information not available 07/02/2022 In The 14 Days Before Symptom Onset, Have You Had Close Contact With A Person Who Is Under Investigation For COVID-19 While That Person Was Ill? No [email or web address] Information not available 07/02/2022 Are You Currently Employed? Yes [email or web address] Information not available 07/02/2022 What Type Of Diet Are You Following? REGULAR [email or web address] Information not available 07/02/2022 What Is The Highest Grade Or Level Of School You Have Completed Or The Highest Degree You Have Received? 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 No [email or web address] Information not available 07/02/2022 Do You Use Insect Repellent Routinely? Yes Information not available 07/02/2022 [facility] [email or web address] Information not available 07/02/2022 Do You Have A Medical Power Of Cotton Candy Maker? No Information not available 08/28/2022 How Many Children Do You Have? 3 2 Sons 1 Daughter Information not available 07/02/2022 Do You Have Any Pets? No [email or web address] Information not available 07/02/2022 What Is Your Relationship Status? [email or web address] Information not available 07/02/2022 Do You Use Your Seat Belt Or Car Seat Routinely? Yes [email or web address] Information not available 07/02/2022 Do You Have Smoke And Carbon Monoxide Detectors In Your Home? Yes [email or web address] Information not available 07/02/2022 Are You Passively Exposed To Smoke? Yes [email or web address] Information not available 07/02/2022 Are There Any Smokers In Your House? Yes [email or web address] Information not available 07/02/2022 Do You Participate In Social Media? Yes Information not available 08/28/2022 What Types Of Sporting Activities Do You Participate In? Walk Information not available 04/15/2023 Do You Feel Stressed (tense, Restless, Nervous, Or Anxious, Or Unable To Sleep At Night)? [id number] [email or web address] Information not available 07/02/2022 Do You Use Any Illicit Or Recreational Drugs? No [email or web address] Information not available 07/02/2022 Do You Use Sunscreen Routinely? Yes [email or web address] Information not available 07/02/2022 Have You Recently Traveled Abroad? No Information not available 07/02/2022 Sex: Unknown Functional Status Question Answer Note LastModified by Organizat ion Details LastModified Time What is your exercise level? Occasional Information not available 04/15/2023 Mental Status None recorded. Family History Relationship Description Onset Age of this Age Resolved Age Notes LastModified by Organization Details LastModified Time Father No current problems or disability [email or web address] Not available 07/02 09:56:41 Mother No current problems or disability [email or web address] Not available 07/02 09:56:41 Medical History Condition Response BLINDNESS N RHEUMATIC FEVER N KIDNEY STONES N BLADDER PROBLEMS N MRSA N OTHER # 1 N POLIO N LUNG DISEASE/DISORDER N HISTORY OF DRUG ABUSE N RADIATION / CHEMOTHERAPY N COPD N Other # 2 N BLOOD DISEASES N SURGERY N EAR OR HEARING PROBLEMS N MUMPS N SHINGLES N BOWEL PROBLEMS N FEMALE PROBLEMS / INFECTIONS N DEPRESSION (INCLUDING POST ) N FAILED BACK SYNDROME N STROKE/TIA N THYROID DISEASE N ULCERS N BENIGN PROSTATIC HYPERPLASIA N MEASLES N CERVICALGIA N HYPOTENSION N TB SKIN TEST N MYOCARDIAL INFARCTION N PARAPELGIA N OBESITY N GERD/NAUSEA N ANEURYSM N URINARY/BLADDER/KIDNEY PROBLEMS N CORONARY ARTERY DISEASE (CAD) N MENIERE'S DISEASE N Do you have Advance directive? N ADDICTION CONCERNS N ENDOMETRIOSIS N USE OF BLOOD THINNERS N SKIN PROBLEMS N EMPHYSEMA N GASTROINTESTINAL DISORDER N PERIPHERAL ARTERY DISEASE N MUSCLE,JOINT OR BONE PROBLEMS N GASTROINTESTINAL BLEEDING N BLOOD CLOTS N ASTHMA N Abdominal Pain N CATARACTS N ARTERIAL INSUFFICIENCY N ERECTILE DYSFUNCTION N GI PROBLEMS N CHF N Low Testosterone N NEUROPATHY N INFERTILITY N AIDS/HIV N FRACTURES N CHEMOTHERAPY / RADIATION N VISION/EYE PROBLEMS N LIVER DISEASE N HYPERTENSION N TOURETTE'S N ANXIETY DISORDER N BLOOD TRANSFUSION N ANEMIA/BLOOD DISORDER N CHRONIC EAR INFECTIONS N BRONCHITIS N TUBERCULOSIS N GLAUCOMA N FOOT PROBLEM N DIVERTICULITIS N CHICKENPOX N SLEEP APNEA N BACK INJECTIONS N ALLERGIES/HAYFEVER N INFECTIOUS DISEASE N HEART ARRHYTHMIA N PROSTATE N ESRD N INSOMNIA N HIGH CHOLESTEROL / HYPERLIPIDEMIA N HYPERTHYROIDISM N EYE PROBLEMS N PVD N EATING DISORDER N EDEMA N CHRONIC PAIN SYNDROME N CAROTID BLOCKAGE N CONSTIPATION N BACK / NECK PROBLEMS N HAVE YOU BEEN HOSPITALIZED OR SEEN IN THE MEDICAL CENTER IN THE PAST YEAR ? N ATHEROSCLEROSIS N BREAST PROBLEMS N DIALYSIS N POLYCYSTIC OVARIES N ECZEMA N FIBROMYALGIA N OSTEOPOROSIS N ARTHRITIS N NO SIGNIFICANT PAST MEDICAL HISTORY N APPENDICITIS N DIABETES, TYPE N BAD TEETH N VON WILLIBRAND'S DISEASE N HEARTBURN / REFLUX N ADD/ADHD N AUTISM SPECTRUM DISORDER (ASD) N POST LAMINECTOMY SYNDROME N HEPATITIS / LIVER DISEASE N PULMONARY DISEASE N GOUT N SLEEP DISORDER N ALZHEIMER'S DISEASE N PAIN N HERPES N DEMENTIA N HEADACHES/MIGRAINES N SEIZURES/EPILEPSY N VASCULAR DISEASE N PACEMAKER N DIZZINESS N HEART DISEASE/HEART PROBLEMS N KIDNEY DISEASE N DEVELOPMENTAL OR BEHAVIORAL DISORDERS N MULTIPLE SCLEROSIS N SCARLET FEVER N MENTAL DISORDER/ILLNESS N NEUROPSYCHOLOGICAL N CARDIAC ARRHYTHMIA N CANCER: SPECIFY N PNEUMONIA N ATRIAL FIBRILLATION N Gall Stones N PULMONARY EMBOLISM N AUTOIMMUNE DISEASE N Gynecological History Statement/Question Response Abnormal Pap N Flow Light Date of LMP 04/15/2023 STIs/STDs N Dislike of Light during Menstrual Headac he Y Do your menstrual headaches get severe Y Date of Last Pap 08/28/2022 Duration of Flow (days) 4 Most Recent Mammogram Age at Menarche 10 Breast Problems no Date of Last Colonoscopy Frequency of Cycle (Q days) 28 Most Recent Bone Density Date of Last Pap Smear 08/28/2022 Discharge no Obstetrics History GPAL:G 3 P 2 1 0 3 Type Value Full Term 2 Premature 1 Living 3 Total 3 Past Encounters Encounter ID Performer Location Encounter Start Date Encounter Closed Date Diagnosis/Indication Diagnosis SNOMED-CT Code Diagnosis ICD10 Code Diagnosis Note [id number] Cheng Whitman MD [address] [address] 07/02/2022 09:47:34 07/02/2022 10:49:45 Pain of right shoulder joint 7971157189 9518097 M25.511 Chronic neck pain 345322 3749 107 M54.2 Paresthesi a of upper limb 03353967 R20.2 Rt UE [id number] Cheng Whitman MD [address] [address] 07/16/2022 09:52:17 07/16/2022 10:27:20 Pain of right shoulder joint 3312720797 0658285 M25.511 Chronic neck pain 351707 6160 107 M54.2 Paresthesi a of upper limb 90738780 R20.2 Rt UE [id number] Cheng Whitman MD [address] [address] 08/07/2022 09:51:35 08/07/2022 10:12:29 Adult health examination 109665444 Z00.00 Pain of ri ght shoulder joint 4663298959 0606615 M25.511 Chronic neck pain 461686 4471 107 M54.2 Paresthesi a of upper limb 07542070 R20.2 Rt UE Impacted c erumen in right ear 7537997508 419153 H61.21 [id number] Cheng Whitman MD [address] [address] 08/21/2022 11:52:12 08/21/2022 12:08:13 Pain of right shoulder joint 9877718694 6309677 M25.511 Chronic neck pain 515169 5595 107 M54.2 Paresthesi a of upper limb 44813144 R20.2 Rt UE Impacted c erumen in right ear 5156893562 698732 H61.21 Hyperlipidemia 96583655 E78.5 [id number] Shabana Nichols NP [address] [address] 08/28/2022 10:02:59 08/28/2022 10:46:11 Gynecologic examination 07489809 Z01.419 Encouraged well balanced meals, active lifestyle, and routine vision and dental appts. [id number] Cheng Whitman MD [address] [address] 11/12/2022 09:33:14 11/12/2022 13:00:15 [id number] Cheng Whitman MD [address] [address] 11/13/2022 09:28:49 11/13/2022 09:57:25 Hyperlipidemia 21939848 E78.5 Pain of ri ght shoulder joint 5416673084 2645885 M25.511 improved Chronic neck pain 518218 2081 107 M54.2 improved Paresthesi a of upper limb 06139180 R20.2 Rt UE - resolved Toothache 72384385 K08.8 9 [id number] Cheng Whitman MD [address] [address] 02/12/2023 09:21:43 02/12/2023 09:58:41 Hyperlipidemia 42146166 E78.5 Pain of ri ght shoulder joint 0741139377 5529510 M25.511 resolved Chronic neck pain 193052 2011 107 M54.2 improved Paresthesi a of upper limb 49640525 R20.2 Rt UE - resolved Vertigo 179053254 R42 [id number] Cheng Whitman MD [facility] [address] 04/08/2023 09:44:32 04/08/2023 11:32:20 [id number] Cheng Whitman MD [facility] [address] [place] [address] 04/15/2023 09:46:54 04/15/2023 10:25:59 Hyperlipidemia 60795498 E78.5 Improved Pain of ri ght shoulder joint 6270071949 4251385 M25.511 resolved Chronic neck pain 758442 3721 107 M54.2 improved Paresthesi a of upper limb 88087021 R20.2 Rt UE - resolved Health Concerns Section Related Observation LastModified by Organization Detai ls LastModified Time None Recorded Concern Status LastModified by Organization Details LastModified Time None Recorded Advance Directives Directive N: Payers Encounter Date Sequence Insurance Name Policy Number Policy Franco Covered Member ID Franco Member ID Guarantor Name 11/12/2022 2 [facility] (MEDICAID REPLACEMENT - HMO) [id number] Khadra Thomas Chandan [id number] Khadra Thomas Chandan Saha 11/12/2022 1 () Khadra Sahni Maria A [id number] Khadra Thomas Chandan Saha 11/13/2022 2 [facility] (MEDICAID REPLACEMENT - HMO) [id number] Khadra Thomas Chandan [id number] Khadra Thomas Chandan Saha 11/13/2022 1 () Khadra Sahni Maria A [id number] Khadar Thomas Chandan Saha 02/12/2023 2 [facility] (MEDICAID REPLACEMENT - HMO) [id number] Khadra Thomas Chandan [id number] Khadra Thomas Chandan Saha 02/12/2023 1 () Khadra Sahni Maria A [id number] ZulyMartha Saha 04/08/2023 1 () Khadra Saha [id number] Khadra Saha 04/15/2023 1 () Khadra Saha [id number] Khadra Saha Notes Date Note Type Note Provider Name and Address Organization Details Recorded Time 11/13/2022 text/html FUV + ACV: C/o Rt upper toothache for last 1 week. Pt will be seeing a new dentist and they have not given any Rx until she sees them. Doing overall well. Her pain is improved compared to her last visit, denies any problem with meds. Pt has not gone for PT yet.C/o Rt shoulder pain and Rt side of her upper neck area pain for last 1 year, on/off. Pt denies any trauma/injury in the past. Denies any workman's comp. Pt says it happens every few weeks and it lasts for few days. No other area pain. At times, tingling and numbness ++. Denies any other concern. Cheng Whitman MD [address], [place], [address], [employer] 11/13/2022 09:49:44 02/12/2023 text/html Pt is here for f/u on her lab and chronic conditions. Doing overall well. Her pain is resolved and no more concern with it. Pt has not gone for lab yet. Cheng Whitman MD [address], [place], [address], [employer] 02/12/2023 09:52:23 04/15/2023 text/html Pt is here for f/u on her lab and chronic conditions. Doing overall well. Denies any concern. Cheng Whitman MD [address], [place], [address], [employer] 04/15/2023 10:08:58 OBGyn Episode No OBEpisode recorded.
--- OUTSIDE RECORDS SUMMARY | 2024-04-15 08:38 | XMS_ITS | Data Portability ---
Author Organization [facility] Barto Address [address] [place] [place] [address] Assessment Encounter Date Assessment Date Assessment LastModified by Organization Details LastModified Time 06/23/2019 06/23/2019 Patient is ___weeks . Discussed plan. [email or web address] Not available 06/23/2019 10:42:11 07/08/2019 07/08/2019 Patient is ___weeks . Discussed plan. [email or web address] Not available 07/08/2019 09:58:12 Plan of Treatment Reminders Order Date Submit Date Provider Last Modified By Organization Details Last Modified Time Details Appointments None recorded. Lab None recorded. Referral None recorded. Procedures None recorded. Surgeries None recorded. Imaging US, obstetric, follow-up 2019 [facility], [address], [place], [address], 0 21:19:50 US, obstetric, biophysica l profile 2019 020 [facility], [address], [place], [address], 0 05:00:43 Medication Orders Slynd 4 mg (28) tablet 2019 INTERFACE [id number], [address] [facility], [place], [place], [id number], 0 12:24:55 Patient TargetsNo targets recorded. Patient InstructionsNo instructions recorded. Reason for Referral None Reported. Results Created Date Observation Date Name Description Value Unit Range Abnormal Flag Note LastModifiedBy Organization Detail LastModifiedTime 04/04/1904/04/2020 US, obste tric follo w-up interpretati on Not Available [facility], [place], [address], 07/08/2019 09:53:52 07/08/19 US, obste tric follo w-up No observ ation record ed. Mary [address], [place], [address], 07/09/2019 16:52:43 Result Notes None recorded. Problems Name Problem SNOMED Code Status Onset Date Resolution Date Notes Provider Name and Address Organization Details Recorded Time Gestatio n period, 28 weeks 63818697 Active 2019 28 weeks gestatio n of pregnanc y;Record ed Elsewher e: No Locat ion: [facility] S ource: EHR Information Resources Manager shara: N Practi ce ID: 0001 [place] lable Time: 08:45:00 AM Not Available [facility] 0 14:28:46 Screenin g for malignan t neoplasm of cervix Active 2017 Screenin g for malignan t neoplasm s of the cervix;R ecorded Elsewher e: No Locat ion: [facility] S ource: EHR Information Resources Manager shara: N Practi ce ID: 0001 [place] lable Time: 10:45:00 AM Not Available [facility] 0 14:28:46 Uses combined oral contrace ption 513339976 Active 2016 Encounte r for initial prescrip tion of contrace ptive pills;Re corded Elsewher e: No Locat ion: [facility] S ource: EHR Information Resources Manager shara: N Practi ce ID: 0001 [place] lable Time: 09:00:00 AM Not Available [facility] 0 14:28:46 Normal pregnanc y in multigra reggie [id number] 4106 Active 2019 Encounte r for suprvsn of normal pregnanc y, second trimeste r;Record ed Elsewher e: No Locat ion: [facility] S ource: EHR Information Resources Manager shara: N Practi ce ID: 0001 [place] lable Time: 08:45:00 AM Not Available [facility] 0 14:28:46 Pregnanc y test negative 578236197 Active 2015 Encounte r for pregnanc y test, result negative ;Recorde d Elsewher e: No [facility] S ource: EHR Information Resources Manager shara: N Practi ce ID: 0001 [place] lable Time: 11:00:00 AM Not Available [facility] 0 14:28:46 Pregnanc y detectio n examinat ion Active 2018 Encounte r for pregnanc y test, result positive ;Recorde d Elsewher e: No Locat ion: [facility] S ource: EHR Information Resources Manager shara: N Practi ce ID: 0001 [place] lable Time: 08:30:00 AM Not Available [facility] 0 14:28:46 Routine antenata l care Active 2013 Supervis ion of other normal pregnanc y;Record ed Elsewher e: No [facility]at ion: [facility] S ource: EHR Information Resources Manager shara: N Practi ce ID: [id number] [place] lable Time: 09:00:00 AM Not Available [facility] 0 14:28:46 Postpart um care Active 2013 Postpart um follow-u p;Record ed Elsewher e: No Locat ion: [facility] S ource: EHR Information Resources Manager shara: N Practi ce ID: 0001 [place] lable Time: 09:00:00 AM Not Available [facility] 0 14:28:46 Speciali zed medical examinat ion Active 2013 Gynecolo gical Examinat ion;Ashok rded Elsewher e: No [facility]at ion: [facility] S ource: EHR Information Resources Manager shara: N Practi ce ID: 0001 [place] lable Time: 01:00:00 PM Not Available [facility] 0 14:28:[address] Concept Active 2015 Encntr for general adult medical exam w/o abnormal findings ;Recorde d Elsewher e: No Locat ion: [facility] S ource: EHR Information Resources Manager shara: N Promiseti ce ID: 0001 [place] lable Time: 11:00:00 AM Not Available [facility] 0 14:28:46 Ultrason ography Active 2013 Antenata l screenin g for malforma tion using ultrason ics;Ashok rded Elsewher e: No Locat ion: [facility] S ource: EHR Information Resources Manager shara: N Promiseti ce ID: 0001 [place] lable Time: 09:00:00 AM Not Available [facility] 0 14:28:46 Antenata l screenin g Active 2013 Antenata l screenin g for malforma tion using ultrason ics;Ashok rded Elsewher e: No Locat ion: [facility] S ource: EHR Information Resources Manager shara: N Promiseti ce ID: 0001 [place] lable Time: 09:00:00 AM Not Available [facility] 0 14:28:46 Congenit al malforma tion 424907480 Active 2013 Antenata l screenin g for malforma tion using ultrason ics;Ashok rded Elsewher e: No Locat ion: [facility] S ource: EHR Information Resources Manager shara: N Bettina ce ID: 0001 [place] lable Time: 09:00:00 AM Not Available [facility] 0 14:28:46 Pregnanc y test positive 064649200 Active 2013 Pregnanc y examinat ion or test, positive result;R ecorded Elsewher e: No Locat ion: [facility] S ource: EHR Information Resources Manager shara: N Promiseti ce ID: 0001 [place] lable Time: 01:00:00 PM Not Available [facility] 0 14:28:46 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; Recorded Elsewher e: No Locat ion: [facility] S ource: EHR Information Resources Manager shara: N Promiseti ce ID: 0001 [place] lable Time: 08:30:00 AM Not Available [facility] 0 14:28:[address] Concept Active 2016 Encntr for sail finisher machine exam (general ) (routine ) w/o abn findings ;Recorde d Elsewher e: No [facility] S ource: EHR Information Resources Manager shara: Latia Dunbar ce ID: 0001 [place] lable Time: 09:00:00 AM Not Available [facility] 0 14:28:47 Breast lump 74201543 Active 2017 Unspecif ied lump in unspecif ied breast;R ecorded Elsewher e: No [facility]at [facility] S ource: EHR Information Resources Manager shara: N Bettina ce ID: 0001 [place] lable Time: 10:45:00 AM Not Available [facility] 0 14:28:47 Antenata l screenin g for malforma tion Active 2019 Encounte r for antenata l screenin g for malforma tions;Re corded Elsewher e: No [facility] S ource: EHR Information Resources Manager shara: Latia Dunbar ce ID: 0001 [place] lable Time: 08:30:00 AM Not Available [facility] 0 14:28:48 Uterine size for dates discrepa ncy Active 2019 Uterine size-carie e discrepa ncy, third trimeste r;Record ed Elsewher e: No [facility]at [facility] S ource: EHR Information Resources Manager shara: N Bettina ce ID: 0001 [place] lable Time: 08:45:00 AM Not Available [facility] 0 14:28:48 Delivery normal 48921966 Active 2013 Normal delivery ;Practic e ID: 0001 Not Available [facility] 0 14:28:50 Single live 112382511 Active 2013 Mother with single liveborn ;Practic e ID: 0001 Not Available [facility] 0 14:28:50 Pregnanc y 94626036 Completed 201902/23/2020 [facility] 0 13:03:21 Problem Notes None recorded. Procedures Surgical History None recorded. Imaging Results Imaging Date Name Status LastModified by [facility] Details LastModified Time 07/08/2019 US, obstetric, follow-up completed [email or web address] [address], [place], [address], 07/09/2019 16:52:43 Procedure Notes None recorded. Medical Equipment None Reported. Allergies No known drug allergies Medications Name Sig Start Date Stop Date Status Note LastModified by Organization Details LastModified Time Reglan 10 mg tablet take 1 tablet by oral route 4 times every day 30 minutes before meals and at bedtime 10/06 completed Prescrib ed Elsewher e: No Locat ion: [facility] odify By: flip Tidwell ter DateTime : 09/16/19 14 10:00:00 AM Not Available Not Available Not Available Zofran 4 mg tablet take 1 tablet by oral route every 4 hours as needed 2018 active Prescrib ed Elsewher e: No Locat ion: [facility] odify By: jlgreen Encounte r DateTime : 02/03/20 19 01:00:00 PM Not Available Not Available Not Available triamcino lone acetonide 0.1 % topical ointment apply by topical route 2 times every day a thin layer to the affected area(s) 06/05 completed Prescrib ed Elsewher e: No Locat ion: [facility] odify By: sandhya z Diann ter DateTime : 03/16/19 16 11:00:00 AM Not Available Not Available Not Available norethind racquel (contrace ptive) 0.35 mg tablet take 1 tablet by oral route every day 06/18 completed Prescrib ed Elsewher e: No Locat ion: [facility]ify By: [email or web address] Encounte r DateTime : 06/07/19 17 11:40:01 AM Not Available Not Available Not Available Triveen-D uo DHA 29 mg-1 mg-400 mg oral pack take 2 by Oral route once 03/16 completed Prescrib ed Elsewher e: No Locat ion: [facility] odify By: [email or web address] trick En counter DateTime : 08/07/19 14 01:00:00 PM Not Available Not Available Not Available SIGN MAINTENANCE-PNV-DH A 28 mg iron-1 mg-200 mg capsule take 1 capsule by oral route every day 03/16 completed Prescrib ed Elsewher e: No Locat ion: [facility] odify By: [email or web address] trick En counter DateTime : 12/14/19 14 02:18:03 PM Not Available Not Available Not Available Lomedia 24 Fe 1 mg-20 mcg (24)/75 mg (4) tablet TAKE 1 TABLET BY ORAL ROUTE EVERY DAY 06/18 completed Prescrib ed Elsewher e: No Locat ion: [facility]ify By: saleem dugan DateTime : 06/19/19 18 10:45:00 AM Not Available Not Available Not Available Slynd 4 mg (28) tablet TAKE 1 TABLET BY MOUTH EVERY DAY active Not Available Not Available No t Available Vitals Date Recorded Body height Body mass index (BMI) Body weight Systolic blood pressure Diastolic blood pressure Provider Name and Address Organization Details Last Updated DateTime 06/23/2019 152.4 cm 26.6 kg/m2 30392.56 232 g 123 mm[Hg] 83 mm[Hg] Liz Angulo [facility] 0 10:45:20 Date Recorded Body height Body mass index (BMI) Systolic blood pressure Diastolic blood pressure Provider Name and Address Organization Details Last Updated DateTime 08/19/2019 152.4 cm 24.6 kg/m2 112 mm[Hg] 75 mm[Hg] Yandy Alba [facility] 08/19/2019 12:12:30 Date Recorded Body weight Provider Name an d Address Organization Details Last Updated DateTime 08/19/2019 68733.41178 g Alba Patino [facility] 02/23/2020 13:02:15 Date Recorded Body height Body mass index (BMI) Body weight Systolic blood pressure Diastolic blood pressure Provider Name and Address Organization Details Last Updated DateTime 07/08/2019 152.4 cm 27.5 kg/m2 21676.52 417 g 114 mm[Hg] 76 mm[Hg] Liz Angulo [facility] 0 10:05:31 Social History None recorded. Functional Status None recorded. Mental Status None recorded. Family History Nothing Reported. Medical History Condition Response Anemia Y Gynecological History Statement/Question Response Current Control Method Obstetrics History GPAL:G 4 P 2 2 1 4 Type Value Full Term 2 Spontaneous 1 Premature 2 Living 4 Total 4 Past Encounters Encounter ID Performer Location Encounter Start Date Encounter Closed Date Diagnosis/Indication Diagnosis SNOMED-CT Code Diagnosis ICD10 Code Diagnosis Note [id number] Chadd Pulido MD [facility] [address] [address] 06/23/2019 09:58:35 06/24/2019 12:25:02 Routine care 693007170 Z34.03 [id number] [facility] [address],[place] [address] 07/08/2019 09:10:06 07/08/2019 16:09:04 Uterine size for dates discrepancy 214737525 O26.843 [id number] Chadd Pulido MD [facility] [address],[place] [address] 07/08/2019 09:23:29 07/08/2019 11:33:28 [id number] Lala Isaacs [facility] [address],[place] [address] 08/19/2019 12:05:26 08/19/2019 16:31:40 state 08438230 Z39.2 Continue to watch for signs/symp toms of post depression . Return one year from last pap smear for a well woman exam. Discussed all bc options and pt would like to start p.o.p. at this time. Encouraged use of condoms in addition to p.o.p. She is strongly considerin g tubal ligation. If she decides to proceed she will call to schedule consult. Patient received above instructio ns, and questions have been answered. If you have any questions please call or respond to this email. Patient was made aware of the patient portal and may obtain a paper copy of today's plan if desired Health Concerns Section Related Observation LastModified by Organization Detai ls LastModified Time None Recorded Concern Status LastModified by Organization Details LastModified Time None Recorded Advance Directives Directive None Recorded Payers Encounter Date Sequence Insurance Name Policy Number Policy Franco Covered Member ID Franco Member ID Guarantor Name 06/23/2019 1 () Arley Saha [id number] ZulyMartha Saha 07/08/2019 1 () Arley Saha [id number] Khadra Saha 07/08/2019 1 () Arley Saha [id number] Khadra Saha 08/19/2019 1 () Arley Saha [id number] Khadra Saha Notes Date Note Type Note Provider Name and Address Organization Details Recorded Time 08/19/2019 text/html VisitReported bypatient.Notes:NSV D. . Bleeding stopped. Has not resumed intercourse. [facility] 08/19/2019 17:02:02 OBGyn Episode Ob Episode Information Episode Created Date Number of Fetuses Patient Bloodtype Patient rh Status Prepregnancy Weight lbs Domestic Partner Domestic Partner Phone Father Name Online Marketer Status 06/23/19 20 1 CLOSED Fetus Data First Name Last Name Admitted to NICU Weight (g) Sex Living Outcome Pediatric Complications Fetus ID Race Codes Race Delivery Type 3373.36 3704 Full Term 444 Vaginal Delivery Mike Calculation Initial Mkie Date Initial Exam Date Initial Exam Provider Initial Ultrasound Date Last Menstrual Period Date Ultra Sound Weeks Gestation 0 Eighteen To Twenty Week Mike Update Ultra Sound Date Fundal Height At Umbil Quickening Date Ultra Sound Latest Weeks Gestation Final Mike Confirmed By Final Mike Confirmed Date Final Mike Date Ultra Sound Latest Days Gestation 0 0 Menstrual History Last Menstrual Date Menses Monthly On Bcp Conception Prior Menses Frequency Hcg Plus Date Menarche Onset Age Delivery Information Delivery Date Delivery Type Labor Anesthesia Weeks Gestation Incision Type Labor Labor Length Hrs Delivered By Post Complications Tubal Sterilization Discharge Date Comments 8 40 Discharge Information Feeding Method Contraceptive Method Maternal HG B and HCT Levels Ob Episode Information Episode Created Date Number of Fetuses Patient Bloodtype Patient rh Status Prepregnancy Weight lbs Domestic Partner Domestic Partner Phone Father Name Online Marketer Status 06/23/19 20 1 CLOSED Fetus Data First Name Last Name Admitted to NICU Weight (g) Sex Living Outcome Pediatric Complications Fetus ID Race Codes Race Delivery Type , Spontane ous 445 Mike Calculation Initial Mike Date Initial Exam Date Initial Exam Provider Initial Ultrasound Date Last Menstrual Period Date Ultra Sound Weeks Gestation 0 Eighteen To Twenty Week Mike Update Ultra Sound Date Fundal Height At Umbil Quickening Date Ultra Sound Latest Weeks Gestation Final Mike Confirmed By Final Mike Confirmed Date Final Mike Date Ultra Sound Latest Days Gestation 0 0 Menstrual History Last Menstrual Date Menses Monthly On Bcp Conception Prior Menses Frequency Hcg Plus Date Menarche Onset Age Delivery Information Delivery Date Delivery Type Labor Anesthesia Weeks Gestation Incision Type Labor Labor Length Hrs Delivered By Post Complications Tubal Sterilization Discharge Date Comments 9 Discharge Information Feeding Method Contraceptive Method Maternal HG B and HCT Levels Ob Episode Information Episode Created Date Number of Fetuses Patient Bloodtype Patient rh Status Prepregnancy Weight lbs Domestic Partner Domestic Partner Phone Father Name Online Marketer Status 06/23/19 20 1 CLOSED Fetus Data First Name Last Name Admitted to NICU Weight (g) Sex Living Outcome Pediatric Complications Fetus ID Race Codes Race Delivery Type 2721.55 2 Full Term 443 Vaginal Delivery Mike Calculation Initial Mike Date Initial Exam Date Initial Exam Provider Initial Ultrasound Date Last Menstrual Period Date Ultra Sound Weeks Gestation 0 Eighteen To Twenty Week Mike Update Ultra Sound Date Fundal Height At Umbil Quickening Date Ultra Sound Latest Weeks Gestation Final Mike Confirmed By Final Mike Confirmed Date Final Mike Date Ultra Sound Latest Days Gestation 0 0 Menstrual History Last Menstrual Date Menses Monthly On Bcp Conception Prior Menses Frequency Hcg Plus Date Menarche Onset Age Delivery Information Delivery Date Delivery Type Labor Anesthesia Weeks Gestation Incision Type Labor Labor Length Hrs Delivered By Post Complications Tubal Sterilization Discharge Date Comments 4 40 +Gbs Discharge Information Feeding Method Contraceptive Method Maternal HG B and HCT Levels Ob Episode Information Episode Created Date Number of Fetuses Patient Bloodtype Patient rh Status Prepregnancy Weight lbs Domestic Partner Domestic Partner Phone Father Name Online Marketer Status 06/23/19 20 1 O Positive 109 CLOSED Fetus Data First Name Last Name Admitted to NICU Weight (g) Sex Living Outcome Pediatric Complications Fetus ID Race Codes Race Delivery Type 2466.40 65 M true Prematur e 441 Vaginal Delivery Mike Calculation Initial Mike Date Initial Exam Date Initial Exam Provider Initial Ultrasound Date Last Menstrual Period Date Ultra Sound Weeks Gestation 09/09/2019 06/23/2019 02/02/2019 12/03/2018 10 Eighteen To Twenty Week Mike Update Ultra Sound Date Fundal Height At Umbil Quickening Date Ultra Sound Latest Weeks Gestation Final Mike Confirmed By Final Mike Confirmed Date Final Mike Date Ultra Sound Latest Days Gestation 02/19/20 19 12 [email or web address] 07/19/2019 08/30/19 20 3 Pre-azul Flowsheet Flowsheet Date 06/23/2019 Mendoza Score Blood Edema Fundus Height Fundus Units Glucose Ketones Leukocytes Nitrite Labor Signs Protein Cervic Dilation Cervic Effacement Cervic Station trace Type Weight in lbs Pre/Post Dialysis Refused Weight 136.925343996769 BP Diastolic BP Location Tested BP Systolic BP Type 83 123 Fetus Heart Rate Present Fetus Movement Comments Flowsheet Date 07/08/2019 Mendoza Score Blood Edema Fundus Height Fundus Units Glucose Ketones Leukocytes Nitrite Labor Signs Protein Cervic Dilation Cervic Effacement Cervic Station Type Weight in lbs Pre/Post Dialysis Refused BP Diastolic BP Location Tested BP Systolic BP Type Fetus Heart Rate Present Fetus Movement Comments Flowsheet Date 07/08/2019 Mendoza Score Blood Edema Fundus Height Fundus Units Glucose Ketones Leukocytes Nitrite Labor Signs Protein Cervic Dilation Cervic Effacement Cervic Station 33 trace Type Weight in lbs Pre/Post Dialysis Refused Weight 141.664256146403 BP Diastolic BP Location Tested BP Systolic BP Type 76 114 Fetus Heart Rate Present A 145 Fetus Movement A Yes Comments Flowsheet Date 02/18/2019 Mendoza Score Blood Edema Fundus Height Fundus Units Glucose Ketones Leukocytes Nitrite Labor Signs Protein Cervic Dilation Cervic Effacement Cervic Station 11 trace Type Weight in lbs Pre/Post Dialysis Refused Weight 107.021212307718 BP Diastolic BP Location Tested BP Systolic BP Type 70 102 sitting Fetus Heart Rate Present A 162 Fetus Movement A No Comments This patient is a 28-year-ol d 3 para 1011 at 12 weeks gestation. She reports some nausea. This is her initial visit. She will return in 4 weeks. She has no other complaints. No other issues. Flowsheet Date 03/18/2019 Mendoza Score Blood Edema Fundus Height Fundus Units Glucose Ketones Leukocytes Nitrite Labor Signs Protein Cervic Dilation Cervic Effacement Cervic Station trace Type Weight in lbs Pre/Post Dialysis Refused Weight 108.035883391240 BP Diastolic BP Location Tested BP Systolic BP Type 67 103 sitting Fetus Heart Rate Present A 152 Fetus Movement A No Comments Nausea and vomiting is impro ving. Flowsheet Date 04/15/2019 Mendoza Score Blood Edema Fundus Height Fundus Units Glucose Ketones Leukocytes Nitrite Labor Signs Protein Cervic Dilation Cervic Effacement Cervic Station none 20 trace Type Weight in lbs Pre/Post Dialysis Refused Weight 115.805553853556 BP Diastolic BP Location Tested BP Systolic BP Type Fetus Heart Rate Present A 150 Fetus Movement A No Comments Expecting baby boy, plans to breastfeed, unsure about circumcision. No complaints today but not feeling movement yet Flowsheet Date 05/14/2019 Mendoza Score Blood Edema Fundus Height Fundus Units Glucose Ketones Leukocytes Nitrite Labor Signs Protein Cervic Dilation Cervic Effacement Cervic Station none 20 Type Weight in lbs Pre/Post Dialysis Refused Weight 122.714335874681 BP Diastolic BP Location Tested BP Systolic BP Type 62 104 sitting Fetus Heart Rate Present A 150 Fetus Movement A Yes Comments Flowsheet Date 06/10/2019 Mendoza Score Blood Edema Fundus Height Fundus Units Glucose Ketones Leukocytes Nitrite Labor Signs Protein Cervic Dilation Cervic Effacement Cervic Station 27 trace Type Weight in lbs Pre/Post Dialysis Refused Weight 132.407187555532 BP Diastolic BP Location Tested BP Systolic BP Type 75 109 sitting Fetus Heart Rate Present A 135 Fetus Movement A Yes Comments Flowsheet Date 08/19/2019 Mendoza Score Blood Edema Fundus Height Fundus Units Glucose Ketones Leukocytes Nitrite Labor Signs Protein Cervic Dilation Cervic Effacement Cervic Station Type Weight in lbs Pre/Post Dialysis Refused Weight 126.73626620053 BP Diastolic BP Location Tested BP Systolic BP Type 75 L arm 112 sitting Fetus Heart Rate Present Fetus Movement Comments Menstrual History Last Menstrual Date Menses Monthly On Bcp Conception Prior Menses Frequency Hcg Plus Date Menarche Onset Age 0912/03/2018 Genetic Screening And Infection History Question Response Note Mental Retardation/Autism false Patient's Age Will Be 35 Years Or Older At Estim ated Date of Delivery false Thalassemia (Pashto, Frisian, Mediterranean, Or Background): MCV < 80 false Neural Tube Defect (Meningomyelocele, Spina Bifi da, Or Anencephaly) false Congenital Heart Defect false Down Syndrome false Gregory-Sachs (eg, Synagogue, Cajun, Venezuelan-Tully) f alse Shon Disease false Sickle Cell Disease Or Trait () false Hemophilia Or Other Blood Disorders false Muscular Dystrophy false Cystic Fibrosis false Barb's Chorea false Intellectual Disability/Autism false If Yes, Was Person Tested For Fragile X? false Other Inherited Genetic Or Chromosomal Disorder false Maternal Metabolic Disorder (eg, Type 1 Diabetes , PKU) false Patient Or Baby's Father Had A Child With Defects Not Listed Above false Recurrent Loss, Or A Stillbirth false Medications (including Suppl ements, Vitamins, Herbs, OTC Drugs), Illicit/Recreational Drugs, Alcohol false If Yes, Agent(s) And Strength/Dosage false Any Other Genetic History false Live With Someone With TB Or Exposed To TB false Patient Or Partner Has History Of Genital Herpes false Rash Or Viral Illness Since Last Menstrual Perio d false History Of STD, Gonorrhea, Chlamydia, HPV, Syphi lis false Other Infection History false History of HIV false History of Hepatitis false Prior GBS-infected child false Hemoglobinopathy Or Carrier false Other Structural Defect false Recent Travel History Outside of Country false Delivery Information Delivery Date Delivery Type Labor Anesthesia Weeks Gestation Incision Type Labor Labor Length Hrs Delivered By Post Complications Tubal Sterilization Discharge Date Comments 0 Augmen obudlio None 34 true Lala Isaacs CNM PTL Discharge Information Feeding Method Contraceptive Method Maternal HG B and HCT Levels Ob Episode Information Episode Created Date Number of Fetuses Patient Bloodtype Patient rh Status Prepregnancy Weight lbs Domestic Partner Domestic Partner Phone Father Name Online Marketer Status 08/19/19 20 1 DELETED Mike Calculation Initial Mike Date Initial Exam Date Initial Exam Provider Initial Ultrasound Date Last Menstrual Period Date Ultra Sound Weeks Gestation 0 Eighteen To Twenty Week Mike Update Ultra Sound Date Fundal Height At Umbil Quickening Date Ultra Sound Latest Weeks Gestation Final Mike Confirmed By Final Mike Confirmed Date Final Mike Date Ultra Sound Latest Days Gestation 0 0 Menstrual History Last Menstrual Date Menses Monthly On Bcp Conception Prior Menses Frequency Hcg Plus Date Menarche Onset Age Delivery Information Delivery Date Delivery Type Labor Anesthesia Weeks Gestation Incision Type Labor Labor Length Hrs Delivered By Post Complications Tubal Sterilization Discharge Date Comments 0 34 true labor Discharge Information Feeding Method Contraceptive Method Maternal HG B and HCT Levels
[2024-04-15 08:41] VITALS: BP 118/87; PULSE 107; RESP 18; TEMP 36.6; O2SAT 100
[2024-04-15 09:10] LABS: EDCOVIDSCREEN Negative (Negative)
[2024-04-15 09:10] LABS: EDINFLUASCREEN Negative (Negative); EDINFLUBSCREEN Negative (Negative)
== END 2024-04-15 09:06 | disposition home or self-care (01) ==
PROVIDERS: Emergency Provider Nurse Practitioner Family; PCP Family Medicine
DX: B34.9 Viral infection, unspecified (principal); Z20.822 Contact with and (suspected) exposure to COVID-19
CPT/HCPCS: 87426; 87804; 99213; G0463

== ENCOUNTER 2024-04-20 08:49 | Emergency (ER) | payer OTHER, SELFPAY ==
--- NOTE | ~2024-04-20 | XR_ITS ---
EXAMINATION: XR chest 2V DATE: 04/20/2024 10:25 INDICATION: Upper respiratory infection. Cough. Shortness of breath. TECHNIQUE: Frontal and lateral views of the chest were obtained. COMPARISON: CT abdomen and pelvis 09/07/2014 FINDINGS: There is no pneumonia, pleural effusion, or pneumothorax. The heart size is normal. IMPRESSION: 1. No acute cardiopulmonary disease. Reviewed, dictated and finalized at location A. ENTATION SPECIALIST
[2024-04-20 08:54] VITALS: BP 126/84; PULSE 113; RESP 16; TEMP 36.6; O2SAT 98
[2024-04-20 10:48] LABS: Influenza A QL RT-PCR Negative (Negative); Influenza B QL RT-PCR Negative (Negative); RSV RNA, RT-PCR Negative (Negative); SARS-CoV-2 RNA PCR Negative (Negative)
--- NOTE | 2024-04-20 11:13 | ED_ITS ---
HPI - General Adult General Chief complaint: Upper Respiratory Infection Stated complaint: not feeling good Time Seen by Provider: 04/20/24 10:34 History of Present Illness HPI narrative: Patient had some diarrhea last night and this morning, she is now feeling better, symptoms resolved. Her is in the hospital with pneumonia and she is concerned she may also be sick. She is also requesting work note Related Data Allergies Allergy/AdvReac Type Severity Reaction Status Date / Time Penicillins Allergy Rash Verified 04/20/24 08:49 [facility] Social History Social History Smoking status: Never smoker Second hand tobacco smoke exposure: Yes Substance use: never Gender identity (if verbalized by the patient): Female Spiritual care concerns: No Course Vital Signs Vital signs: Vital Signs Temperature 97.8 F 04/20/24 08:54 Pulse Rate 113 H 04/20/24 08:54 Respiratory Rate 16 04/20/24 08:54 Blood Pressure 126/84 04/20/24 08:54 Pulse Oximetry 98 04/20/24 08:54 Oxygen Delivery Room Air 04/20/24 08:54 Temperature 97.8 F 04/20/24 08:54 Pulse Rate 113 H 04/20/24 08:54 Respiratory Rate 16 04/20/24 08:54 Blood Pressure 126/84 04/20/24 08:54 Pulse Oximetry 98 04/20/24 08:54 Oxygen Delivery Room Air 04/20/24 08:54 Medical Decision Making MDM Narrative Medical decision making narrative: Patient had some diarrhea last night and this morning, she is now feeling better, symptoms resolved. Her is in the hospital with pneumonia and she is concerned she may also be sick. She is also requesting work note Slightly tachycardic here but no chest pain or shortness of breath. Well-appear ing, flu swabs negative, chest x-ray negative. Discussed with patient, she is happy to go home, denies any complaints or symptoms right now, would like to have work note. Return precautions discussed. Vital Signs Vital Signs: Vital Signs Temperature 97.8 F 04/20/24 08:54 Pulse Rate 113 H 04/20/24 08:54 Respiratory Rate 16 04/20/24 08:54 Blood Pressure 126/84 04/20/24 08:54 Pulse Oximetry 98 04/20/24 08:54 Oxygen Delivery Room Air 04/20/24 08:54 Temperature 97.8 F 04/20/24 08:54 Pulse Rate 113 H 04/20/24 08:54 Respiratory Rate 16 04/20/24 08:54 Blood Pressure 126/84 04/20/24 08:54 Pulse Oximetry 98 04/20/24 08:54 Oxygen Delivery Room Air 04/20/24 08:54 Lab Data Labs: Lab Results 04/20/24 Range/Units 10:04 Influenza A (RT-PCR) Negative (Negative) Influenza B (RT-PCR) Negative (Negative) RSV (RT-PCR) Negative (Negative) SARS-CoV-2 RNA (RT-PCR) Negative (Negative) Discharge Plan Discharge Clinical Impression: Acute viral syndrome Patient Disposition: Home, Self-Care Condition: Stable Instructions: Acute Diarrhea (ED) Patient Language: Lithuanian Prescriptions: No Action benzonatate 100 mg capsule 100 mg PO BID PRN (Reason: cough) Qty: 14 0RF Follow-up/Referrals: J Carlos,MD Cheng [Primary Care Provider] - Stand Alone Forms: Work/School Release IP
[2024-04-20 11:18] VITALS: BP 128/72; PULSE 102; RESP 16; O2SAT 98
--- OUTSIDE RECORDS SUMMARY | 2024-04-20 11:52 | XMS_ITS | Data Portability ---
Author Organization [facility] [place] Address [address] [place] [address] Assessment Encounter Date Assessment Date Assessment LastModified [...] None recorded. Imaging US, obstetric, follow-up 2019 [facility] [address], [address], [place], [address], 0 21:19:50 US, obstetric, biophysica l profile 2019 020 [facility] [address], [address], [place], [address], 0 05:00:43 Medication Orders Slynd 4 mg (28) tablet 2019 [id number], [address], [place], [place], [id number], 0 12:24:55 Patient TargetsNo targets recorded. Patient InstructionsNo instructions recorded. Reason for Referral None Reported. Results Created Date Observation Date Name Description Value Unit Range Abnormal Flag Note LastModifiedBy Organization Detail LastModifiedTime 04/04/1904/04/2020 US, obste tric follo w-up interpretati on Not Available Jai [address], [place], [address], 07/08/2019 09:53:52 07/08/19 US, obste tric follo w-up No observ ation record ed. [email or web address] [address], [place], [address], 07/09/2019 16:52:43 Result Notes None recorded. Problems Name Problem SNOMED Code Status Onset Date Resolution Date Notes Provider Name and Address Organization Details Recorded Time Gestatio n period, 28 weeks 74841123 Active 2019 28 weeks gestatio n of pregnanc y;Record ed Elsewher e: No Locat ion: [facility] S ource: EHR Assistant In Nursing hsara: N Practi ce ID: 0001 [place] lable Time: 08:45:00 AM Not Available [facility] 0 14:28:46 Screenin g for malignan t neoplasm of cervix Active 2017 Screenin g for malignan t neoplasm s of the cervix;R ecorded Elsewher e: No Locat ion: [facility] S ource: EHR Assistant In Nursing shara: N Practi ce ID: 0001 [place] lable Time: 10:45:00 AM Not Available [facility] 0 14:28:46 Uses combined oral contrace ption 900970343 Active 2016 Encounte r for initial prescrip tion of contrace ptive pills;Re corded Elsewher e: No Locat ion: [facility] S ource: EHR Assistant In Nursing shara: N Practi ce ID: 0001 [place] lable Time: 09:00:00 AM Not Available [facility] 0 14:28:46 Normal pregnanc y in multigra reggie 67445698780 4106 Active 2019 Encounte r for suprvsn of normal pregnanc y, second trimeste r;Record ed Elsewher e: No Locat ion: Kaitlin kemp [facility] S ource: EHR Assistant In Nursing shara: N Practi ce ID: 0001 [place] lable Time: 08:45:00 AM Not Available [facility] 0 14:28:46 Pregnanc y test negative 537674222 Active 2015 Encounte r for pregnanc y test, result negative ;Recorde d Elsewher e: No [facility] S ource: EHR Assistant In Nursing shara: N Practi ce ID: 0001 [place] lable Time: 11:00:00 AM Not Available [facility] 0 14:28:46 Pregnanc y detectio n examinat ion Active 2018 Encounte r for pregnanc y test, result positive ;Recorde d Elsewher e: No Locat ion: [facility] S ource: EHR Assistant In Nursing shara: N Practi ce ID: 0001 [place] lable Time: 08:30:00 AM Not Available [facility] 0 14:28:46 Routine antenata l care Active 2013 Supervis ion of other normal pregnanc y;Record ed Elsewher e: No [facility] S ource: EHR Assistant In Nursing shara: N Practi ce ID: 0001 [place] lable Time: 09:00:00 AM Not Available [facility] 0 14:28:46 Postpart um care Active 2013 Postpart um follow-u p;Record ed Elsewher e: No Locat ion: Jai [facility] S ource: EHR Assistant In Nursing shara: N Practi ce ID: 0001 [place] lable Time: 09:00:00 AM Not Available [facility] 0 14:28:46 Speciali zed medical examinat ion Active 2013 Gynecolo gical Examinat ion;Ashok rded Elsewher e: No [facility] S ource: EHR Assistant In Nursing shara: N Practi ce ID: 0001 [place] lable Time: 01:00:00 PM Not Available [facility] 0 14:28:[address] Concept Active 2015 Encntr for general adult medical exam w/o abnormal findings ;Recorde d Elsewher e: No Locat ion: [facility] S ource: EHR Assistant In Nursing shara: N Promiseti ce ID: 0001 [place] lable Time: 11:00:00 AM Not Available [facility] 0 14:28:46 Ultrason ography Active 2013 Antenata l screenin g for malforma tion using ultrason ics;Ashok rded Elsewher e: No Locat ion: [facility] S ource: EHR Assistant In Nursing shara: N Promiseti ce ID: 0001 [place] lable Time: 09:00:00 AM Not Available [facility] 0 14:28:46 Antenata l screenin g Active 2013 Antenata l screenin g for malforma tion using ultrason ics;Ashok rded Elsewher e: No Locat ion: [facility] S ource: EHR Assistant In Nursing shara: N Promiseti ce ID: 0001 [place] lable Time: 09:00:00 AM Not Available [facility] 0 14:28:46 Congenit al malforma tion 729501387 Active 2013 Antenata l screenin g for malforma tion using ultrason ics;Ashok rded Elsewher e: No Locat ion: [facility] S ource: EHR Assistant In Nursing shara: N Bettina ce ID: 0001 [place] lable Time: 09:00:00 AM Not Available [facility] 0 14:28:46 Pregnanc y test positive 525143673 Active 2013 Pregnanc y examinat ion or test, positive result;R ecorded Elsewher e: No Locat ion: [facility] S ource: EHR Assistant In Nursing shara: N Promiseti ce ID: 0001 [place] lable Time: 01:00:00 PM Not Available [facility] 0 14:28:46 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; Recorded Elsewher e: No Locat ion: [facility] S ource: EHR Assistant In Nursing shara: N Promiseti ce ID: 0001 [place] lable Time: 08:30:00 AM Not Available [facility] 0 14:28:[address] Concept Active 2016 Encntr for full stack developer exam (general ) (routine ) w/o abn findings ;Recorde d Elsewher e: No [facility] S ource: EHR Assistant In Nursing shara: Latia Dunbar ce ID: 0001 [place] lable Time: 09:00:00 AM Not Available [facility] 0 14:28:47 Breast lump 80942937 Active 2017 Unspecif ied lump in unspecif ied breast;R ecorded Elsewher e: No [facility] S ource: EHR Assistant In Nursing shara: N Bettina ce ID: 0001 [place] lable Time: 10:45:00 AM Not Available [facility] 0 14:28:47 Antenata l screenin g for malforma tion Active 2019 Encounte r for antenata l screenin g for malforma tions;Re corded Elsewher e: No [facility] Assistant In Nursing shara: Latia Dunbar ce ID: 0001 [place] lable Time: 08:30:00 AM Not Available [facility] 0 14:28:48 Uterine size for dates discrepa ncy Active 2019 Uterine size-carie e discrepa ncy, third trimeste r;Record ed Elsewher e: No [facility] EHR Assistant In Nursing shara: N Bettina ce ID: 0001 [place] lable Time: 08:45:00 AM Not Available [facility] 0 14:28:48 Delivery normal 65122587 Active 2013 Normal delivery ;Practic e ID: 0001 Not Available [facility] 0 14:28:50 Single live 189543831 Active 2013 Mother with single liveborn ;Practic e ID: 0001 Not Available [facility] 0 14:28:50 Pregnanc y 16360256 Completed 201902/23/2020 Alba Patino [facility] 0 13:03:21 Problem Notes None recorded. Procedures Surgical History None recorded. Imaging Results Imaging Date Name Status [facility] Details LastModified Time 07/08/2019 US, obstetric, follow-up completed [email or web address] [address], [place], [address], 07/09/2019 16:52:43 Procedure Notes None recorded. Medical Equipment None Reported. Allergies No known drug allergies Medications Name Sig Start Date Stop Date Status Note LastModified by Organization Details LastModified Time Reglan 10 mg tablet take 1 tablet by oral route 4 times every day 30 minutes before meals and at bedtime 10/06 completed Prescrib ed Elsewher e: No Locat ion: [facility] [address] odify By: flip Tidwell ter DateTime : 09/16/19 14 10:00:00 AM Not Available Not Available Not Available Zofran 4 mg tablet take 1 tablet by oral route every 4 hours as needed 2018 active Prescrib ed Elsewher e: No Locat ion: [facility] [address] odify By: [email or web address] Encounte r DateTime : 02/03/20 19 01:00:00 PM Not Available Not Available Not Available triamcino lone acetonide 0.1 % topical ointment apply by topical route 2 times every day a thin layer to the affected area(s) 06/05 completed Prescrib ed Elsewher e: No Locat ion: [facility] [address] odify By: sandhya z Diann ter DateTime : 03/16/19 16 11:00:00 AM Not Available Not Available Not Available norethind racquel (contrace ptive) 0.35 mg tablet take 1 tablet by oral route every day 06/18 completed Prescrib ed Elsewher e: No Locat ion: [facility] [address] odify By: [email or web address] Encounte r DateTime : 06/07/19 17 11:40:01 AM Not Available Not Available Not Available Triveen-D uo DHA 29 mg-1 mg-400 mg oral pack take 2 by Oral route once 03/16 completed Prescrib ed Elsewher e: No Locat ion: [facility] [address] odify By: [email or web address] trick En counter DateTime : 08/07/19 14 01:00:00 PM Not Available Not Available Not Available SKILLS TRAINER-PNV-DH A 28 mg iron-1 mg-200 mg capsule take 1 capsule by oral route every day 03/16 completed Prescrib ed Elsewher e: No Locat ion: [facility] [address] odify By: [email or web address] trick En counter DateTime : 12/14/19 14 02:18:03 PM Not Available Not Available Not Available Lomedia 24 Fe 1 mg-20 mcg (24)/75 mg (4) tablet TAKE 1 TABLET BY ORAL ROUTE EVERY DAY 06/18 completed Prescrib ed Elsewher e: No Locat ion: [facility] [address] odify By: saleem dugan DateTime : 06/19/19 [...] Updated DateTime 06/23/2019 152.4 cm 26.6 kg/m2 46422.56 232 g 123 mm[Hg] 83 mm[Hg] Liz Angulo [facility] 0 10:45:20 Date Recorded Body height Body mass index (BMI) Systolic blood pressure Diastolic blood pressure Provider Name and Address Organization Details Last Updated DateTime 08/19/2019 152.4 cm 24.6 kg/m2 112 mm[Hg] 75 mm[Hg] Yandy Alba [facility] 08/19/2019 12:12:30 Date Recorded Body weight Provider Name an d Address Organization Details Last Updated DateTime 08/19/2019 41679.19290 g Alba Patino [facility] 02/23/2020 13:02:15 Date Recorded Body height Body mass index (BMI) Body weight Systolic blood pressure Diastolic blood pressure Provider Name and Address Organization Details Last Updated DateTime 07/08/2019 152.4 cm 27.5 kg/m2 08474.52 417 g 114 mm[Hg] 76 mm[Hg] Liz Angulo [facility] 0 10:05:31 Social History None recorded. [...] Code Diagnosis Note 827 Chadd Pulido MD [place] [address] [address] 06/23/2019 09:58:35 06/24/2019 12:25:02 Routine care 299124839 Z34.03 2559 [facility] [address],[place] [address] 07/08/2019 09:10:06 07/08/2019 16:09:04 Uterine size for dates discrepancy 098340100 O26.843 2562 Chadd Pulido MD [facility] [place] [address] [address] 07/08/2019 09:23:29 07/08/2019 11:33:28 7559 Lala Isaacs [place] [address],[place] [address] 08/19/2019 12:05:26 08/19/2019 16:31:40 state 53015884 Z39.2 Continue to watch for signs/symp toms [...] Guarantor Name 06/23/2019 1 () Arley Saha [id number] ZulyMartha Saha 07/08/2019 1 () Arley Saha [id number] Khadra Saha 07/08/2019 1 () Arley Saha [id number] Khadra Saha 08/19/2019 1 () Arley Saha [id number] Khadra Saha Notes Date Note Type Note Provider Name and Address Organization Details Recorded Time 08/19/2019 text/html VisitReported bypatient.Notes:NSV D. . Bleeding stopped. Has not resumed intercourse. Lala Isaacs [facility] 08/19/2019 17:02:02 OBGyn Episode Ob Episode Information Episode Created Date Number of Fetuses Patient Bloodtype Patient rh Status Prepregnancy Weight lbs Domestic Partner Domestic Partner Phone Father Name Planer Setup Operator Status 06/23/19 20 1 CLOSED Fetus Data First Name Last Name Admitted to NICU Weight (g) Sex Living Outcome Pediatric Complications Fetus ID Race Codes Race Delivery Type [phone] Full Term 444 Vaginal Delivery Mike Calculation Initial Mike Date [...] Domestic Partner Domestic Partner Phone Father Name Planer Setup Operator Status 06/23/19 20 1 CLOSED Fetus Data [...] Domestic Partner Domestic Partner Phone Father Name Planer Setup Operator Status 06/23/19 20 1 CLOSED Fetus Data [...] Domestic Partner Domestic Partner Phone Father Name Planer Setup Operator Status 06/23/19 20 1 O Positive 109 [...] 19 12 [email or web address] 07/19/2019 08/30/19 20 3 Pre- Flowsheet Flowsheet Date 06/23/2019 Mendoza Score Blood Edema Fundus Height Fundus Units Glucose Ketones Leukocytes Nitrite Labor Signs Protein Cervic Dilation Cervic Effacement Cervic Station trace Type Weight in lbs Pre/Post Dialysis Refused Weight 136.518482453377 BP Diastolic BP Location Tested BP Systolic [...] Weight in lbs Pre/Post Dialysis Refused Weight 141.312245969659 BP Diastolic BP Location Tested BP Systolic BP Type 76 114 Fetus Heart Rate Present A 145 Fetus Movement A Yes Comments Flowsheet Date 02/18/2019 Mendoza Score Blood Edema Fundus Height Fundus Units Glucose Ketones Leukocytes Nitrite Labor Signs Protein Cervic Dilation Cervic Effacement Cervic Station 11 trace Type Weight in lbs Pre/Post Dialysis Refused Weight 107.390615054565 BP Diastolic BP Location Tested BP Systolic [...] Weight in lbs Pre/Post Dialysis Refused Weight 108.508946553540 BP Diastolic BP Location Tested BP Systolic [...] Weight in lbs Pre/Post Dialysis Refused Weight 115.346041171561 BP Diastolic BP Location Tested BP Systolic [...] Weight in lbs Pre/Post Dialysis Refused Weight 122.158687133165 BP Diastolic BP Location Tested BP Systolic BP Type 62 104 sitting Fetus Heart Rate Present A 150 Fetus Movement A Yes Comments Flowsheet Date 06/10/2019 Mendoza Score Blood Edema Fundus Height Fundus Units Glucose Ketones Leukocytes Nitrite Labor Signs Protein Cervic Dilation Cervic Effacement Cervic Station 27 trace Type Weight in lbs Pre/Post Dialysis Refused Weight 132.623206314008 BP Diastolic BP Location Tested BP Systolic BP Type 75 109 sitting Fetus Heart Rate Present A 135 Fetus Movement A Yes Comments Flowsheet Date 08/19/2019 Mendoza Score Blood Edema Fundus Height Fundus Units Glucose Ketones Leukocytes Nitrite Labor Signs Protein Cervic Dilation Cervic Effacement Cervic Station Type Weight in lbs Pre/Post Dialysis Refused Weight 126.48993785895 BP Diastolic BP Location Tested BP Systolic [...] Estim ated Date of Delivery false Thalassemia (Kazakh, Botswanan, Mediterranean, Or Background): MCV < 80 false Neural Tube Defect (Meningomyelocele, Spina Bifi da, Or Anencephaly) false Congenital Heart Defect false Down Syndrome false Gregory-Sachs (eg, Religion, Cajun, Colombian-Highlands) f alse Shon Disease false Sickle Cell Disease Or Trait () false Hemophilia Or Other Blood Disorders false Muscular Dystrophy false Cystic Fibrosis false Acadia's Chorea false Intellectual Disability/Autism false If Yes, [...] Tubal Sterilization Discharge Date Comments 0 Augmen obdulio None 34 true Lala Isaacs CNM PTL Discharge Information Feeding Method Contraceptive Method Maternal HG B and HCT Levels Ob Episode Information Episode Created Date Number of Fetuses Patient Bloodtype Patient rh Status Prepregnancy Weight lbs Domestic Partner Domestic Partner Phone Father Name Planer Setup Operator Status 08/19/19 20 1 DELETED Mike Calculation [...]
== END 2024-04-20 11:28 | disposition home or self-care (01) ==
PROVIDERS: Physician Assistant; Emergency Provider Emergency Medicine; PCP Family Medicine
DX: B34.9 Viral infection, unspecified (principal); Z20.822 Contact with and (suspected) exposure to COVID-19
CPT/HCPCS: 71046; 87637; 99283

== ENCOUNTER 2024-11-16 08:37 | Emergency (ER) | payer OTHER, SELFPAY ==
--- OUTSIDE RECORDS SUMMARY | 2024-10-19 09:51 | XMS_ITS | Continuity of Care Document ---
Author Organization [facility] Address [address] [place] [address] Phone Care Team Providers Care Veterinary Milk Specialist Name Role Phone Jojo Valderrama MD Unavailable Unavailable Advance Directives Directive Yes / No Effective Date File Name No Information Encounters Encounter Description Practice Location Reason(s) For Visit Diagnoses Date Provider Providers Copied on Encounter [facility], [address], [place], [place], [id number], [place] tel:[phone] [facility] No Information 5 Jannie Uribe. [address], [place], [address], [place]. tel:[phone] Family History Family Member Type Diagnosis Age At Onset No Information Payers Payer name Insurance type Covered constitution party ID Authoriza tion(s) No Information Social History Type Description Quantity Date Captured Comments Sex Female Smoking Status No Information Chief Complaint And Reason For Visit No Information Reason For Referral Reason For Referral No Information History Of Present Illness Encounter Date Complaint History Of Prese nt Illness No Information Functional Status Date Functional Assessmen t No Information Instructions Date Instruction Additional Infor mation No Information Assessments Type Assessment Date No Information Patient Care Teams Name Effective Dates (start - stop) Status Members No Information
[2024-11-16 08:45] VITALS: BP 124/80; PULSE 80; RESP 18; TEMP 36.3; O2SAT 100
--- NOTE | 2024-11-16 08:56 | ED.GENADULT ---
HPI - General Adult General Chief complaint: Dizziness Stated complaint: Dizzy Time Seen by Provider: 11/16/24 08:56 Source: patient Mode of arrival: ambulatory Limitations: no limitations History of Present Illness HPI narrative: 34 year old female who presents to [facility] with complaints of having dizziness starting 2 months ago. She reports that she saw her physician 1 month ago and was started on Meclizine which does help but states sometimes dizziness comes back. She states that her physician stated her ear was clogged and she is here today to have ears check, reports decreased hearing to right ear. Patient reports that dizziness is intermittent states she feels off and at times room seems to spin. Patient reports no cold symptoms, denies any nausea vomiting or diarrhea. MD complaint: right ear clogged with decreased hearing intermittent dizziness Onset (ago): month(s) (1 month) Location: head (right ear) Severity: moderate Treatments prior to arrival: other (meclizine) Related Data Home Medications ?Medication ?Instructions ?Recorded ?Confirmed ?Last Taken ?Type epinephrine 0.3 mg/0.3 mL 11/16/24 Unknown History injection, auto-injector fluticasone propionate 50 intranasal 11/16/24 Unknown History mcg/actuation nasal spray,suspension meclizine 25 mg tablet mg 11/16/24 Unknown History Allergies Allergy/AdvReac Type Severity Reaction Status Date / Time Penicillins Allergy Mild Rash Verified 11/16/24 08:40 Review of Systems Review of Systems: CONSTITUTIONAL: Denies fever, chills, or sweats. EYES: Denies visual changes, redness, or discharge. ENT: Denies rhinorrhea, congestion, sore throat, reports decreased hearing to right ear with feeling of ear being clogged CARDIOVASCULAR: Denies chest pain, palpitations, or edema. RESPIRATORY: Denies cough or dyspnea. GASTROINTESTINAL: Denies abdominal pain, nausea, vomiting, or diarrhea. GENITOURINARY: Denies dysuria or hematuria. SKIN: Denies rash or itching. MUSCULOSKELETAL: Denies back pain, joint pain, or myalgia. NEUROLOGIC: Denies headache, numbness, or weakness, reports intermittent dizziness/vertigo PSYCHIATRIC: Denies anxiety or depression. All systems reviewed & are unremarkable except as noted in HPI and below PMFSH Past Medical History Medical History (Updated 11/17/24 @ 08:48 by Penelope Yañez NP) History of sinus problem Dizziness Surgical History Surgical History (Updated 11/17/24 @ 08:30 by Penelope Yañez NP) Hx of appendectomy Social History Social History Smoking status: Never smoker Second hand tobacco smoke exposure: Yes Substance use: never Gender identity (if verbalized by the patient): Female Spiritual care concerns: No Comments At time of signature, agree with nursing past medical, surgical, social and family history. There is no relevant family history pertinent to the presenting complaint Exam Narrative: GENERAL: Well-appearing, well-nourished, and in no acute distress. HEAD: Normocephalic, atraumatic. EYES: PERRLA and EOMI.no nystagmus ENT: Nares clear, no rhinorrhea or epistaxis. Mucous membranes moist.Left TM with brisk light reflex, Right ear noted to have cerumen impaction, once cleared TM noted to have dull light reflex with no redness or bulging, ear canals bilaterally without redness. NECK: Supple. no lymphadenopathy CHEST: Clear to auscultation. No respiratory distress.no cough noted SAO2 100% on room HEART: Regular rate and rhythm. No murmur heard. Normal peripheral pulses ABDOMEN: Soft, nontender, nondistended, normal active bowel sounds. EXTREMITIES: Normal range of motion. No edema. SKIN: Warm, dry, no rash. NEURO: No focal deficits. Alert and oriented x3. Course Course Emergency Course: Patient is aware of diagnosis, understands and agrees to treatment plan.? Anticipatory guidance given.? Patient agrees to follow-up as directed and is aware of reasons to seek care at the emergency department. Portions of this record may have been created with voice recognition software Level of Care: Express Care Visit Vital Signs Vital signs: Vital Signs Temperature 36.3 C L 11/16/24 08:45 Pulse Rate 80 11/16/24 08:45 Respiratory Rate 18 11/16/24 08:45 Blood Pressure 124/80 11/16/24 08:45 Pulse Oximetry 100 11/16/24 08:45 Oxygen Delivery Room Air 11/16/24 08:45 Temperature 36.3 C L 11/16/24 08:45 Pulse Rate 80 11/16/24 08:45 Respiratory Rate 18 11/16/24 08:45 Blood Pressure 124/80 11/16/24 08:45 Pulse Oximetry 100 11/16/24 08:45 Oxygen Delivery Room Air 11/16/24 08:45 Reviewed Procedures Ear Wax Removal Right Ear: Ear Wax Removal Date: 11/16/24 Ear Wax Removal Time: 09:10 Cerumenolytic Used: 5-10% Sodium Bicarb solution and other (Debrox 5 gtts to right ear) Results: Re-examined: some cerumen remains TM Examination: TM(s) intact, normal appearance Ear Canal Exam: atraumatic Patient Tolerated Procedure: well and other (no complaints of dizziness during procedure) Complications: no problems Technique: ear canal irrigated and ear canal curetted Additional Comments: Debrox 5 drops placed into right ear and allowed to sit in canal for 5 minutes then right ear irrigated with warm water and hydrogen peroxide with moderate amount of wax curetted from ear, patient tolerated well Medical Decision Making MDM Narrative Medical decision making narrative: Exam findings and imaging show no acute concerns or changes; patient is non-toxic appearing and is in no distress.? Patient is appropriate for outpatient treatment and follow-up Differential Diagnosis Differential Diagnosis: decreased hearing right ear, cerumen impaction right ear, episodes of dizziness Medical Records Medical records reviewed: Yes I reviewed the external patient's medical records. Vital Signs Vital Signs: Vital Signs Temperature 36.3 C L 11/16/24 08:45 Pulse Rate 80 11/16/24 08:45 Respiratory Rate 18 11/16/24 08:45 Blood Pressure 124/80 11/16/24 08:45 Pulse Oximetry 100 11/16/24 08:45 Oxygen Delivery Room Air 11/16/24 08:45 Temperature 36.3 C L 11/16/24 08:45 Pulse Rate 80 11/16/24 08:45 Respiratory Rate 18 11/16/24 08:45 Blood Pressure 124/80 11/16/24 08:45 Pulse Oximetry 100 11/16/24 08:45 Oxygen Delivery Room Air 11/16/24 08:45 reviewed Critical Care Time Critical Care Time Critical Care Time: No Discharge Plan Discharge Clinical Impression: Hearing loss of right ear due to cerumen impaction Benign paroxysmal positional vertigo Qualifiers: Laterality: unspecified laterality Qualified Code(s): H81.10 - Benign paroxysmal vertigo, unspecified ear Patient Disposition: Home Condition: Stable Instructions: Carbamide Peroxide (Into the ear), Benign Paroxysmal Positional Vertigo (ED) Additional Instructions: continue your Meclizine as ordered use Debrox to ears 10 drops once weekly Hua maneuvers for vertigo patient information given Do not make any sudden position changes Drink at least 6 glasses of fluids daily preferably water If your symptoms persist, change or worsen significantly before you can contact your personal physician then please, without delay, go to the emergency department for further evaluation. Follow-up with PCP in 7-10 days or sooner if needed Follow up with PCP soon in regards to your blood pressure which is elevated above threshold for referral. Blood pressure above 120/80 may indicate pre-hypertension.124/80 minimal elevation Patient Language: Yakut Prescriptions: No Action meclizine 25 mg tablet epinephrine 0.3 mg/0.3 mL auto-injector fluticasone propionate 50 mcg/actuation spray,suspension INTRANASAL Follow-up/Referrals: J Carlos,MD Cheng [Primary Care Provider, Unknown] Time of Disposition: 09:30 Quality [place] Coma Scale Eyes: Open Verbal: Oriented and Alert Motor: Follows Commands [place] Coma Total Score: 15
== END 2024-11-16 09:35 | disposition home or self-care (01) ==
PROVIDERS: Emergency Provider Registered Nurse; PCP Family Medicine
DX: H61.21 Impacted cerumen, right ear (principal); H81.10 Benign paroxysmal vertigo, unspecified ear
CPT/HCPCS: 69210; 99213; A9270; G0463